=== PATIENT | male | born 1955 | race Caucasian/White ===

== ENCOUNTER 2017-01-13 10:23 | Emergency (ER) | payer OTHER ==
[~2017-01-13] VITALS: Ht 182.9 cm; Wt 143.0 kg
[~2017-01-13 10:23] MED LIST: ADVAIR HFA120 INHAL1 IH; ALLOPURINOL300 MG PO; ALPRAZOLAM0.25 M2 PO; AUGMENTIN500 MG PO; AZITHROMYCIN250 MG1 PO; Augmentin PO; BENZONATATE100 MG PO; CARDIZEM CD,CA240 MG PO; CARDIZEM CD120 MG PO; CARDIZEM LA120 MG PO; CARDIZEM120 MG PO; CARTIA XT240 MG PO; CATAPRES0.1 MG PO; CATAPRES0.3 MG PO; CITRACAL-VIT D1 EACH PO; CLONAZEPAM0.5 MG PO; CLONIDINE HCL0.1 MG PO; CLONIDINE HCL0.3 MG PO; COLBENEMID1 TABLET PO; COLCRYS0.6 MG PO; COUMADIN,JANTOVE1 MG; COUMADIN,JANTOVE5 MG; COUMADIN2 MG PO; COUMADIN3 MG PO; COUMADIN4 MG PO; COUMADIN5 MG PO; CRESTOR5 MG PO; CYMBALTA30 MG PO; Cardizem CD,Cartia X PO; Catapres PO; Cipro PO; Colchicine,Colcrys PO; Cymbalta PO; DELTASONE20 M1 PO; DIGITEK250 MC2 PO; DIGOXIN250 MCG PO; DILAUDID2 MG PO; DILAUDID4 MG PO; DILAUDID8 MG PO; DILT-XR120 MG; DILTIAZEM 24HR240 MG PO; DOCUSATE SODIU100 MG PO; DUONEB 2.5-0.5 M3 ML AEROSOL; DUONEB 2.5-0.5 M3 ML IH; DuoNeb IH; ERGOCALCIF50000 UNIT PO; EXTRA STRENGTH500 M1 PO; FAMOTIDINE40 MG PO; FINASTERIDE5 MG PO; FLEXERIL10 MG PO; FLOMAX0.4 MG PO; FLORA-Q CAPSUL1 EACH PO; FOLIC ACID1 MG PO; FUROSEMIDE20 MG PO; Folvite PO; INR ON; Imodium PO; KLONOPIN1 MG PO; KLONOPIN2 MG PO; KLOR-CON 1010 ME1 PO; KlonoPIN PO; LANOXIN250 MCG PO; LASIX20 MG PO; LEVAQUIN500 MG PO; LEVAQUIN750 MG PO; LIPITOR40 MG PO; Lanoxin,Digitek PO; Lovenox SC; MECLIZINE HCL25 MG PO; MICARDIS20 MG PO; MORPHINE SULFAT15 M1 PO; MORPHINE SULFAT30 M2 PO; MUCINEX1200 MG PO; MYCOSTATIN 100,60 ML PO; NEURONTIN300 MG PO; NEURONTIN600 MG PO; NEURONTIN800 MG PO; OXYCONTIN20 MG PO; PEPCID40 MG PO; PERCOCET 5/31 TABLET; POLYETHYLENE GL17 GM PO; PREDNISONE10 M2 PO; PREDNISONE10 MG PO; PREDNISONE20 MG PO; PREDNISONE5 MG PO; PROBENECID-COL1 EACH PO; PROMETHAZINE HC25 M1 PO; PROSCAR5 MG PO; PROTONIX40 MG PO; PROVENTIL HFA6.7 GM IH; PROVENTIL,2.5 MG/0.5 AEROSOL; PROVENTIL,2.5 MG/0.5 IH; Pepcid PO; Proscar PO; QUETIAPINE FUM100 MG PO; QUETIAPINE FUMA50 MG PO; ROXICODONE15 MG PO; SEROQUEL50 MG PO; SINGULAIR10 MG PO; SPIRIVA1 INHALATI; SPIRIVA1 INHALATI IH; SPIRONOLACTONE25 MG PO; SYMBICORT60 INHALAT IH; Singulair PO; THEO-24200 MG PO; THEO-DUR,THEOC100 MG PO; THEO-DUR,THEOC200 MG PO; THEOPHYLLINE400 MG PO; TYLENOL COLD &1 EACH PO; TYLENOL REGULA325 MG PO; Theo-Dur,Theocron PO; VITAMIN D-32000 UNIT PO; VITAMIN D2000 INTUN PO; VITAMIN D33000 UNIT PO; Vitamin D PO; WARFARIN SODIUM4 MG PO; WARFARIN SODIUM5 MG PO; Xifaxan PO; ZOFRAN4 MG PO; ZYLOPRIM150 MG PO; Zyloprim PO; [UNRECOGNIZED DRUG - OTHER]; predniSONE PO; symbicort
[2017-01-13] MEDS ORDERED: GABAPENTIN800 MG PO (10:58)
[2017-01-13] MEDS ORDERED: KLONOPIN0.5 M1 PO (11:00)
[2017-01-13 12:16] LABS: MCH 31.6 PG (29.0-34.0); MCHC 32.1 G/DL (30.0-36.0); MCV 98.5 FL (86-99); MEAN PLAT.VOLUME 9.2 uM^3 (9.0-12.4); PLATELET COUNT 230 K/uL (156-360); RBC DIS.WIDTH-CV 15.3 % (11.8-14.6); RBC DIS.WIDTH-SD 55.5 % (39-53); RED BLOOD COUNT 3.96 M/uL (4.00-5.50); WHITE BLOOD COUNT 8.4 K/uL (4.1-10.2)
[2017-01-13 12:28] LABS: CHLORIDE 103 mEq/L (99-109); SODIUM 141 mEq/L (136-147)
[2017-01-13 12:30] LABS: GLUCOSE 117 mg/dL (70-99)
[2017-01-13 12:32] LABS: ANION GAP 14 MEQ/L (2-14)
[2017-01-13 12:34] LABS: GFR ESTIMATE (CALCULATED) > 59 mL/min/
[2017-01-13 12:35] LABS: UREA NITROGEN (BUN) 19 mg/dL (9-23)
[2017-01-13 15:05] VITALS: BP 138/72
== END 2017-01-13 15:08 | disposition home or self-care (01) ==
LOC: EME 10:23
PROVIDERS: Physician Assistant Medical
DX: S30.1XXA Contusion of abdominal wall, initial encounter (principal); S39.012A Strain of muscle, fascia and tendon of lower back, initial encounter; S80.01XA Contusion of right knee, initial encounter; S80.02XA Contusion of left knee, initial encounter; W01.0XXA Fall on same level from slipping, tripping and stumbling without subsequent striking against object, initial encounter; Y93.A1 Activity, exercise machines primarily for cardiorespiratory conditioning; G89.29 Other chronic pain; J44.9 Chronic obstructive pulmonary disease, unspecified; M79.7 Fibromyalgia; I10 Essential (primary) hypertension; K21.9 Gastro-esophageal reflux disease without esophagitis; Z87.442 Personal history of urinary calculi; Z79.01 Long term (current) use of anticoagulants; Z86.73 Personal history of transient ischemic attack (TIA), and cerebral infarction without residual deficits; M06.9 Rheumatoid arthritis, unspecified; L40.50 Arthropathic psoriasis, unspecified; Z86.718 Personal history of other venous thrombosis and embolism; Z85.828 Personal history of other malignant neoplasm of skin
CPT/HCPCS: 70450; 73564; 74177; 80048; 85027; 99281; 99285

== ENCOUNTER → 2017-10-06 | Outpatient (CLI) | payer OTHER ==
[~2017-10-06] MED LIST changes: +GABAPENTIN800 MG PO; +KLONOPIN0.5 M1 PO
== END | disposition home or self-care (01) ==
LOC: AMB 08:54
PROC: 0HBFXZZ Excision of Right Hand Skin, External Approach (ICD-10-PCS; principal; 2017-10-06)
DX: C44.622 Squamous cell carcinoma of skin of right upper limb, including shoulder (principal); L57.0 Actinic keratosis
CPT/HCPCS: 88305

== ENCOUNTER 2018-02-17 19:01 | Inpatient (IN) | payer OTHER ==
[~2018-02-17] VITALS: Ht 182.9 cm; Wt 150.4 kg
[~2018-02-17 19:01] MED LIST changes: +EMBEDA ER 20-01 EACH PO; +OXYCONTIN15 MG PO; +SYMBICORT60 INHALA1 IH
[2018-02-17 19:44] LABS: CHLORIDE 108 mEq/L (99-109); POTASSIUM 5.8 mEq/L (3.7-5.4); SODIUM 140 mEq/L (136-147)
[2018-02-17 19:46] LABS: GLUCOSE 102 mg/dL (70-99)
[2018-02-17 19:50] LABS: GFR ESTIMATE (CALCULATED) 36 mL/min/ (58.99-99999); UREA NITROGEN (BUN) 44 mg/dL (9-23)
[2018-02-17 19:54] LABS: TROP-I INTERPRETATION NEGATIVE; TROPONIN-I < 0.01 ng/mL (0.0-0.30)
[2018-02-17 20:53] LABS: HEMATOCRIT 23.6 % (38.0-50.0); HEMOGLOBIN 7.3 G/DL (12.5-16.6); MCH 22.9 PG (29.0-34.0); MCHC 30.9 G/DL (30.0-36.0); NRBC (%) 2.1 /100 WBC (0-0); RBC DIS.WIDTH-CV 37.9 % (11.8-14.6); RED BLOOD COUNT 3.19 M/uL (4.00-5.50); WHITE BLOOD COUNT 3.9 K/uL (4.1-10.2)
[2018-02-17 21:37] LABS: ACANTHOCYTES 2+; ANISOCYTOSIS 3+; BASOPH.STIPPLING 3+; HYPOCHROMASIA 2+; MACROCYTES 1+; MICROCYTOSIS 2+; PLAT.SUFFICIENCY VERY DECREASED; POIKILOCYTOSIS 3+; POLYCHROMASIA 3+; SCHISTOCYTES 3+; TARGET CELLS 1+; TEAR DROP CELLS 2+
[2018-02-17 21:39] LABS: MAGNESIUM 2.1 mg/dL (1.3-2.7)
[2018-02-17] MEDS ORDERED: SEROQUEL100 MG PO (21:57)
[2018-02-17] MEDS ORDERED: OMEPRAZOLE40 M1 PO (21:59)
[2018-02-17] MEDS ORDERED: CYMBALTA60 MG PO (21:59)
[2018-02-17] MEDS ORDERED: KLOR-CON M2020 MEQ PO (21:59)
[2018-02-17] MEDS ORDERED: PROMETHAZINE HC25 M1 PO (22:00)
[2018-02-17] MEDS ORDERED: ERGOCALCIF50000 UNIT PO (22:00)
[2018-02-17 22:08] LABS: INTER. NORMALIZED RATIO 2.1
[2018-02-17 22:20] LABS: PLATELET COUNT 25 K/uL (156-360)
[2018-02-17 22:27] LABS: APPEARANCE CLEAR ((CLEAR)); BILIRUBIN NEGATIVE; BLOOD NEGATIVE; COLOR YELLOW ((YELLOW)); GLUCOSE (STRIP) NEGATIVE; KETONES NEGATIVE; LEUKOCYTES NEGATIVE; NITRITE NEGATIVE; PROTEIN (STRIP) NEGATIVE; SPECIFIC GRAVITY 1.013 (1.000-1.030); UROBILINOGEN 0.2 MG/DL (0.2-1.0)
[2018-02-17 23:17] LABS: ABS NEUTROPHIL COUNT 0.6; EOSINOPHIL ABS CT 0.2
[2018-02-17 23:21] LABS: HEMATOCRIT 22.9 % (38.0-50.0); MCH 22.8 PG (29.0-34.0); MCHC 30.6 G/DL (30.0-36.0); MCV 74.6 FL (86-99); NRBC (%) 2.7 /100 WBC (0-0); RBC DIS.WIDTH-CV 38.1 % (11.8-14.6); RED BLOOD COUNT 3.07 M/uL (4.00-5.50); WHITE BLOOD COUNT 3.4 K/uL (4.1-10.2)
[2018-02-18] VITALS (17 sets, daily range): BP systolic 107–189; BP diastolic 49–84
[2018-02-18 00:44] LABS: ABS NEUTROPHIL COUNT 0.4; ACANTHOCYTES 2+; ANISOCYTOSIS 3+; ATYPICAL LYMPHOCYTE 13.7 %; BAND NEUTROPHILS 4.9 % (0-8.0); BASOPH.STIPPLING 1+; BASOPHILS 4.9 %; EOSINOPHIL ABS CT 0.2; EOSINOPHILS 6.9 % (0-5.0); GIANT PLATELETS 1+; HELMET CELLS 1+; HYPOCHROMASIA 2+; IMM.PLATELET FRACTION 19.3 (1-7); LYMPHOCYTES 57.8 % (15.0-45.0); MACROCYTES 1+; METAMYELOCYTES 2.9 %; MICROCYTOSIS 2+; NUCLEATED RBC'S 5.9; PLAT.SUFFICIENCY DECREASED; PLATELET COUNT 54 K/uL (156-360); POIKILOCYTOSIS 3+; POLYCHROMASIA 3+; SCHISTOCYTES 2+; SEG.NEUTROPHILS 7.9 % (46.0-76.0); SPHEROCYTES 1+; TARGET CELLS 3+; TEAR DROP CELLS 1+
[2018-02-18 01:17] LABS: BASE EXCESS 0.7 mEq/L (-3 to +3); BICARBONATE 26.5 mEq/L (22-26); CARBOXY HGB 2.1 % (0-5); METHEMOGLOBIN 0.6 % (0-1.5); PCO2 48 mm Hg (35-45); PO2 95 mm Hg (80-100); SITE LR; pH 7.35 (7.35-7.45)
[2018-02-18 01:18] LABS: COMMENTS - BLOOD GASES C+A+; DEVICE NC; O2 FLOW 2 L/MIN; TOTAL RESP RATE 19 resp/min
[2018-02-18 06:31] LABS: APPEARANCE CLEAR ((CLEAR)); BILIRUBIN NEGATIVE; BLOOD NEGATIVE; COLOR STRAW ((YELLOW)); GLUCOSE (STRIP) NEGATIVE; KETONES NEGATIVE; LEUKOCYTES NEGATIVE; NITRITE NEGATIVE; PROTEIN (STRIP) NEGATIVE; SPECIFIC GRAVITY 1.008 (1.000-1.030); UCUL ADDED? NO; UROBILINOGEN 0.2 MG/DL (0.2-1.0)
[2018-02-18 09:30] LABS: IRON 157 MCG/DL (35-150); TRANSFERRIN SATUR. 67 % (20-55)
[2018-02-18 09:43] LABS: TROP-I INTERPRETATION NEGATIVE; TROPONIN-I < 0.01 ng/mL (0.0-0.30)
[2018-02-18 09:47] LABS: FERRITIN 475 NG/ML (22-322)
[2018-02-18 09:57] LABS: FOLIC ACID (FOLATE) 14.2 NG/ML (5.0-22.0)
[2018-02-18 14:21] LABS: TROP-I INTERPRETATION NEGATIVE; TROPONIN-I < 0.01 ng/mL (0.0-0.30)
[2018-02-18 21:19] LABS: STOOL OCCULT BLD 1ST SPECIMEN NEGATIVE
[2018-02-19 00:13] VITALS: BP 133/60
[2018-02-19 03:58] VITALS: BP 132/63
[2018-02-19 06:52] LABS: HEMATOCRIT 31.5 % (38.0-50.0); IMM.PLATELET FRACTION 17.2 (1-7); MCH 23.9 PG (29.0-34.0); MCHC 31.1 G/DL (30.0-36.0); MCV 76.8 FL (86-99); NRBC (%) 1.7 /100 WBC (0-0); PLATELET COUNT 60 K/uL (156-360); RBC DIS.WIDTH-CV 34.6 % (11.8-14.6); WHITE BLOOD COUNT 3.6 K/uL (4.1-10.2)
[2018-02-19 06:55] LABS: CHLORIDE 103 MEQ/L (99-109); GLUCOSE 114 mg/dL (70-99); SODIUM 142 MEQ/L (136-147); UREA NITROGEN (BUN) 34 mg/dL (9-23)
[2018-02-19 06:56] LABS: HEMOGLOBIN 9.8 G/DL (12.5-16.6)
[2018-02-19 07:03] LABS: CREATININE 1.4 MG/DL (0.6-1.3); GFR ESTIMATE (CALCULATED) 54 mL/min/ (58.99-99999); POTASSIUM 4.6 MEQ/L (3.7-5.4)
[2018-02-19 07:34] VITALS: BP 138/77
[2018-02-19 12:30] VITALS: BP 139/81
[2018-02-19 15:43] VITALS: BP 128/60
[2018-02-19 19:35] VITALS: BP 124/56
[2018-02-20 00:03] VITALS: BP 136/63
[2018-02-20 03:37] VITALS: BP 126/58
[2018-02-20 07:14] VITALS: BP 115/52
[2018-02-20 11:20] LABS: HEMATOCRIT 28.8 % (38.0-50.0); HEMOGLOBIN 9.1 G/DL (12.5-16.6); MCH 23.9 PG (29.0-34.0); MCHC 31.6 G/DL (30.0-36.0); MCV 75.6 FL (86-99); NRBC (%) 2.6 /100 WBC (0-0); RBC DIS.WIDTH-CV 34.5 % (11.8-14.6); RED BLOOD COUNT 3.81 M/uL (4.00-5.50); WHITE BLOOD COUNT 2.7 K/uL (4.1-10.2)
[2018-02-20 11:28] LABS: PLATELET COUNT 520 K/uL (156-360)
[2018-02-20 11:47] LABS: CHLORIDE 99 MEQ/L (99-109); CREATININE 1.2 MG/DL (0.6-1.3); GFR ESTIMATE (CALCULATED) > 59 mL/min/ (58.99-99999); GLUCOSE 139 mg/dL (70-99); SODIUM 138 MEQ/L (136-147); UREA NITROGEN (BUN) 29 mg/dL (9-23)
[2018-02-20 16:47] VITALS: BP 136/60
[2018-02-20 23:31] VITALS: BP 156/62
[2018-02-21 06:24] LABS: HEMATOCRIT 27.9 % (38.0-50.0); HEMOGLOBIN 8.8 G/DL (12.5-16.6); MCHC 31.5 G/DL (30.0-36.0); NRBC (%) 1.5 /100 WBC (0-0); RBC DIS.WIDTH-CV 34.5 % (11.8-14.6); RED BLOOD COUNT 3.67 M/uL (4.00-5.50); WHITE BLOOD COUNT 2.7 K/uL (4.1-10.2)
[2018-02-21 06:32] LABS: CHLORIDE 100 MEQ/L (99-109); CREATININE 1.2 MG/DL (0.6-1.3); GFR ESTIMATE (CALCULATED) > 59 mL/min/ (58.99-99999); GLUCOSE 121 mg/dL (70-99); MAGNESIUM 1.7 mg/dl (1.3-2.7); POTASSIUM 4.4 MEQ/L (3.7-5.4); SODIUM 141 MEQ/L (136-147); UREA NITROGEN (BUN) 28 mg/dL (9-23)
[2018-02-21 07:46] LABS: IMM.PLATELET FRACTION 21.1 (1-7); PLAT.SUFFICIENCY VERY DECREASED
[2018-02-21 07:54] LABS: PLATELET COUNT 23 K/uL (156-360)
[2018-02-21 07:56] VITALS: BP 134/63
[2018-02-21 16:00] VITALS: BP 108/66
[2018-02-21 23:36] VITALS: BP 132/67
[2018-02-22] VITALS (10 sets, daily range): BP systolic 113–136; BP diastolic 54–65
[2018-02-22 06:25] LABS: CHLORIDE 100 MEQ/L (99-109); CREATININE 1.2 MG/DL (0.6-1.3); GFR ESTIMATE (CALCULATED) > 59 mL/min/ (58.99-99999); GLUCOSE 94 mg/dL (70-99); POTASSIUM 4.5 MEQ/L (3.7-5.4); SODIUM 142 MEQ/L (136-147); UREA NITROGEN (BUN) 24 mg/dL (9-23)
[2018-02-22 06:37] LABS: HEMATOCRIT 28.5 % (38.0-50.0); MCHC 31.6 G/DL (30.0-36.0); NRBC (%) 1.3 /100 WBC (0-0); RBC DIS.WIDTH-CV 34.6 % (11.8-14.6); RED BLOOD COUNT 3.75 M/uL (4.00-5.50); WHITE BLOOD COUNT 3.1 K/uL (4.1-10.2)
[2018-02-22 08:18] LABS: ABS NEUTROPHIL COUNT 0.6; ANISOCYTOSIS 3+; BAND NEUTROPHILS 15.2 % (0-8.0); BASOPHILS 0.9 %; BURR CELLS 2+; EOSINOPHIL ABS CT 0.3; EOSINOPHILS 8.9 % (0-5.0); HEMATOLOGY COMMENT 1 SLIDE REFFERED TO PATHOLOGY; HYPOCHROMASIA 2+; IMM.PLATELET FRACTION 22.6 (1-7); LYMPHOCYTES 47.3 % (15.0-45.0); MACROCYTES 1+; METAMYELOCYTES 2.7 %; MICROCYTOSIS 2+; MONOCYTES 3.6 % (0-9.0); MYELOCYTES 1.8 %; NUCLEATED RBC'S 1.8; PLAT.SUFFICIENCY VERY DECREASED; POIKILOCYTOSIS 2+; POLYCHROMASIA 1+; SCHISTOCYTES 2+; SEG.NEUTROPHILS 3.6 % (46.0-76.0); TARGET CELLS 1+
[2018-02-22 08:21] LABS: PLATELET COUNT 23 K/uL (156-360)
[2018-02-23 06:24] LABS: INTER. NORMALIZED RATIO 1.2
[2018-02-23 06:26] LABS: PTT 31.8 SEC (25-37)
[2018-02-23 08:08] VITALS: BP 121/69
[2018-02-23 13:07] LABS: HEMATOCRIT 31.6 % (38.0-50.0); HEMOGLOBIN 9.7 G/DL (12.5-16.6); MCH 23.5 PG (29.0-34.0); MCHC 30.7 G/DL (30.0-36.0); MCV 76.5 FL (86-99); NRBC (%) 1.4 /100 WBC (0-0); RBC DIS.WIDTH-CV 34.4 % (11.8-14.6); RED BLOOD COUNT 4.13 M/uL (4.00-5.50); WHITE BLOOD COUNT 2.8 K/uL (4.1-10.2)
[2018-02-23 13:29] LABS: ABS NEUTROPHIL COUNT 0.8; ANISOCYTOSIS 2+; BAND NEUTROPHILS 16.8 % (0-8.0); BASOPH.STIPPLING 1+; BASOPHILS 2.7 %; BURR CELLS 2+; EOSINOPHIL ABS CT 0.4; EOSINOPHILS 13.3 % (0-5.0); HEMATOLOGY COMMENT 1 OTHERS=IMMATURE MONONUCLEAR CELLS; HYPOCHROMASIA 2+; IMM.PLATELET FRACTION 13.4 (1-7); LYMPHOCYTES 38.1 % (15.0-45.0); METAMYELOCYTES 3.5 %; MICROCYTOSIS 2+; MONOCYTES 1.8 % (0-9.0); MYELOCYTES 3.5 %; OTHER 9.7; PLAT.SUFFICIENCY DECREASED; POIKILOCYTOSIS 2+; POLYCHROMASIA 1+; SCHISTOCYTES 2+; SEG.NEUTROPHILS 10.6 % (46.0-76.0); TARGET CELLS 1+; TEAR DROP CELLS 1+
[2018-02-23 13:32] LABS: PLATELET COUNT 81 K/uL (156-360)
[2018-02-23 15:28] VITALS: BP 141/65
[2018-02-24] VITALS (9 sets, daily range): BP systolic 103–131; BP diastolic 52–68
[2018-02-24 11:09] LABS: CHLORIDE 98 MEQ/L (99-109); CREATININE 1.3 MG/DL (0.6-1.3); GFR ESTIMATE (CALCULATED) > 59 mL/min/ (58.99-99999); GLUCOSE 159 mg/dL (70-99); POTASSIUM 3.9 MEQ/L (3.7-5.4); SODIUM 139 MEQ/L (136-147); UREA NITROGEN (BUN) 26 mg/dL (9-23)
[2018-02-24 11:13] LABS: HEMATOCRIT 29.9 % (38.0-50.0); HEMOGLOBIN 9.2 G/DL (12.5-16.6); MCH 23.3 PG (29.0-34.0); MCHC 30.8 G/DL (30.0-36.0); MCV 75.7 FL (86-99); RBC DIS.WIDTH-CV 34.3 % (11.8-14.6); RED BLOOD COUNT 3.95 M/uL (4.00-5.50); WHITE BLOOD COUNT 3.9 K/uL (4.1-10.2)
[2018-02-24 12:18] LABS: ABS NEUTROPHIL COUNT 0.9; ATYPICAL LYMPHOCYTE 1.8 %; BAND NEUTROPHILS 7.3 % (0-8.0); BASOPHILS 2.7 %; EOSINOPHIL ABS CT 0.3; EOSINOPHILS 8.2 % (0-5.0); LYMPHOCYTES 48.2 % (15.0-45.0); MYELOCYTES 6.4 %; NUCLEATED RBC'S 0.9; SEG.NEUTROPHILS 15.4 % (46.0-76.0)
[2018-02-24 12:22] LABS: PLATELET COUNT 49 K/uL (156-360)
[2018-02-25 00:18] VITALS: BP 126/67
[2018-02-25 01:18] VITALS: BP 142/63
[2018-02-25 01:56] VITALS: BP 145/70
[2018-02-25 03:09] LABS: HEMATOCRIT 27.7 % (38.0-50.0); HEMOGLOBIN 8.9 G/DL (12.5-16.6); MCHC 32.1 G/DL (30.0-36.0); MCV 74.7 FL (86-99); NRBC (%) 0.7 /100 WBC (0-0); RBC DIS.WIDTH-CV 34.5 % (11.8-14.6); RED BLOOD COUNT 3.71 M/uL (4.00-5.50); WHITE BLOOD COUNT 4.6 K/uL (4.1-10.2)
[2018-02-25 04:31] LABS: ABS NEUTROPHIL COUNT 0.9; ANISOCYTOSIS 2+; BAND NEUTROPHILS 1.9 % (0-8.0); BASOPH.STIPPLING 1+; BASOPHILS 1.9 %; BURR CELLS 3+; EOSINOPHIL ABS CT 0.5; EOSINOPHILS 11.2 % (0-5.0); GIANT PLATELETS 3+; HYPOCHROMASIA 1+; LYMPHOCYTES 45.8 % (15.0-45.0); MACROCYTES 1+; METAMYELOCYTES 2.8 %; MICROCYTOSIS 2+; MONOCYTES 4.7 % (0-9.0); MYELOCYTES 5.6 %; NUCLEATED RBC'S 2.8; OTHER 9.3; PLAT.SUFFICIENCY VERY DECREASED; PLATELET COUNT 63 K/uL (156-360); POIKILOCYTOSIS 3+; POLYCHROMASIA 3+; SCHISTOCYTES 1+; SEG.NEUTROPHILS 16.8 % (46.0-76.0); TARGET CELLS 1+; TEAR DROP CELLS 2+
[2018-02-25 08:19] VITALS: BP 119/73
[2018-02-25 11:56] LABS: INTER. NORMALIZED RATIO 1.2
[2018-02-25] MEDS ORDERED: CYANOCOBALAM1000 MCG PO (13:38)
[2018-02-25 16:51] LABS: CLINICAL INFORMATION NOT PROVIDED; NUMBER OF MARKERS 22; SPECIMEN TYPE BONE MARROW; SPECIMEN VIABILITY 93
== END 2018-02-25 16:36 | disposition home health service (06) | DRG 809 ==
LOC: EME 19:01 → EXP 19:01 → EDOF 02-18 01:03 → 5SOUTH 02-18 01:03 → ENRESERV 02-18 01:13 → 5SOUTH 02-18 03:12 → ENPENDDIS 02-25 14:19 → 5SOUTH 02-25 16:36
PROVIDERS: Hospitalist; Internal Medicine; Internal Medicine Hematology & Oncology; Physician Assistant; Radiology Diagnostic Radiology
PROC: 30233N1 Transfusion of Nonautologous Red Blood Cells into Peripheral Vein, Percutaneous Approach (ICD-10-PCS; principal; 2018-02-18)
PROC: 30233R1 Transfusion of Nonautologous Platelets into Peripheral Vein, Percutaneous Approach (ICD-10-PCS; 2018-02-22)
PROC: 07DS3ZX Extraction of Vertebral Bone Marrow, Percutaneous Approach, Diagnostic (ICD-10-PCS; 2018-02-23)
DX: D61.818 Other pancytopenia (principal); I48.0 Paroxysmal atrial fibrillation; I48.2 Chronic atrial fibrillation; I12.9 Hypertensive chronic kidney disease with stage 1 through stage 4 chronic kidney disease, or unspecified chronic kidney disease; N18.2 Chronic kidney disease, stage 2 (mild); E66.01 Morbid (severe) obesity due to excess calories; Z68.41 Body mass index [BMI] 40.0-44.9, adult; I69.354 Hemiplegia and hemiparesis following cerebral infarction affecting left non-dominant side; I69.398 Other sequelae of cerebral infarction; R42 Dizziness and giddiness; F05 Delirium due to known physiological condition; I27.20 Pulmonary hypertension, unspecified; J44.9 Chronic obstructive pulmonary disease, unspecified; G47.33 Obstructive sleep apnea (adult) (pediatric); Z99.81 Dependence on supplemental oxygen; E78.00 Pure hypercholesterolemia, unspecified; L40.50 Arthropathic psoriasis, unspecified; K76.0 Fatty (change of) liver, not elsewhere classified; F03.90 Unspecified dementia, unspecified severity, without behavioral disturbance, psychotic disturbance, mood disturbance, and anxiety; G93.89 Other specified disorders of brain; M10.9 Gout, unspecified; M06.9 Rheumatoid arthritis, unspecified; M79.7 Fibromyalgia; G43.909 Migraine, unspecified, not intractable, without status migrainosus; Q60.0 Renal agenesis, unilateral; G89.29 Other chronic pain; M54.9 Dorsalgia, unspecified; E53.8 Deficiency of other specified B group vitamins; K21.9 Gastro-esophageal reflux disease without esophagitis; F41.9 Anxiety disorder, unspecified; F32.9 Major depressive disorder, single episode, unspecified; Z86.718 Personal history of other venous thrombosis and embolism; Z79.01 Long term (current) use of anticoagulants; Z87.442 Personal history of urinary calculi; Z87.19 Personal history of other diseases of the digestive system; Z90.49 Acquired absence of other specified parts of digestive tract
CPT/HCPCS: 36600; 70450; 70551; 71046; 77012; 80048; 81003; 82272; 82607; 82728; 82746; 82803; 82948; 83090 90; 83540; 83735; 83921 90; 84466; 84484; 85007; 85025; 85025 91; 85027; 85049; 85610; 85730; 86850; 86900; 86901; 86920; 93005; 94640; 94640 76; 94760; 94799; 95819; 99202; 99281; 99285; J1200; J1940; J2405; J3010; J3420; J7030; P9016; P9035

== ENCOUNTER 2018-03-15 11:14 | Inpatient (IN) | payer OTHER ==
[2018-03-15] VITALS (8 sets, daily range): BP systolic 95–151; BP diastolic 45–66
[~2018-03-15] VITALS: Ht 182.9 cm; Wt 149.8 kg
[~2018-03-15 11:14] MED LIST changes: +CYANOCOBALAM1000 MCG PO; +CYMBALTA60 MG PO; +KLOR-CON M2020 MEQ PO; +OMEPRAZOLE40 M1 PO; +SEROQUEL100 MG PO
[2018-03-15 12:33] LABS: BASE EXCESS 3.3 mEq/L (-3 to +3); BICARBONATE 27.8 mEq/L (22-26); CARBOXY HGB 2.2 % (0-5); COMMENTS - BLOOD GASES A+C+; DEVICE NC; METHEMOGLOBIN 1.1 % (0-1.5); O2 FLOW 2 L/MIN; PCO2 41 mm Hg (35-45); PO2 71 mm Hg (80-100); SITE RR; TOTAL RESP RATE 25 resp/min; pH 7.44 (7.35-7.45)
[2018-03-15 12:33] LABS: INTER. NORMALIZED RATIO 2.3
[2018-03-15 12:35] LABS: PTT 40.4 SEC (25-37)
[2018-03-15 12:40] LABS: CHLORIDE 105 mEq/L (99-109); SODIUM 137 mEq/L (136-147)
[2018-03-15 12:42] LABS: GLUCOSE 101 mg/dL (70-99)
[2018-03-15 12:45] LABS: CREATININE 1.8 mg/dL (0.6-1.3); GFR ESTIMATE (CALCULATED) 41 mL/min/ (58.99-99999); HEMATOCRIT 21.9 % (38.0-50.0); HEMOGLOBIN 7.1 G/DL (12.5-16.6); MCH 23.6 PG (29.0-34.0); MCHC 32.4 G/DL (30.0-36.0); MCV 72.8 FL (86-99); NRBC (%) 0.9 /100 WBC (0-0); RBC DIS.WIDTH-CV 34.9 % (11.8-14.6); RED BLOOD COUNT 3.01 M/uL (4.00-5.50); WHITE BLOOD COUNT 5.8 K/uL (4.1-10.2)
[2018-03-15 12:46] LABS: UREA NITROGEN (BUN) 42 mg/dL (9-23)
[2018-03-15 12:48] LABS: CREATINE KINASE 114 IU/L (1-294); POTASSIUM 6.3 mEq/L (3.7-5.4); TOTAL CK 114 IU/L (1-294)
[2018-03-15 12:50] LABS: TROP-I INTERPRETATION NEGATIVE; TROPONIN-I < 0.01 ng/mL (0.0-0.30)
[2018-03-15 12:57] LABS: CK-MB 1.3 ng/mL (0.0-4.9); CKMB RELATIVE INDEX 1.1 (0.0-3.9)
[2018-03-15 13:27] LABS: IMM.PLATELET FRACTION 18.8 (1-7); PLATELET COUNT 37 K/uL (156-360)
[2018-03-15 13:28] LABS: ABS NEUTROPHIL COUNT 2.8; ACANTHOCYTES 2+; ANISOCYTOSIS 2+; BAND NEUTROPHILS 22.4 % (0-8.0); BURR CELLS 2+; EOSINOPHIL ABS CT 0.5; EOSINOPHILS 8.6 % (0-5.0); HYPOCHROMASIA 1+; LYMPHOCYTES 18.1 % (15.0-45.0); METAMYELOCYTES 5.2 %; MICROCYTOSIS 2+; MYELOCYTES 11.2 %; NUCLEATED RBC'S 0.9; OTHER 8.6; OVALOCYTES 2+; PLAT.SUFFICIENCY DECREASED; POIKILOCYTOSIS 3+; POLYCHROMASIA 3+; SEG.NEUTROPHILS 25.9 % (46.0-76.0)
[2018-03-15] MEDS ORDERED: LISINOPRIL10 MG PO (13:40)
[2018-03-15] MEDS ORDERED: DILTIAZEM 24HR240 MG PO (13:44)
[2018-03-15] MEDS ORDERED: WARFARIN SODIUM3 MG PO (13:47)
[2018-03-15] MEDS ORDERED: CYANOCOBALAM1000 MCG PO (13:48)
[2018-03-15] MEDS ORDERED: ACETAMINOPHEN325 M1 PO (13:48)
[2018-03-15 18:50] LABS: APPEARANCE CLEAR ((CLEAR)); BILIRUBIN NEGATIVE; BLOOD NEGATIVE; COLOR STRAW ((YELLOW)); GLUCOSE (STRIP) NEGATIVE; KETONES NEGATIVE; LEUKOCYTES NEGATIVE; NITRITE NEGATIVE; PROTEIN (STRIP) 30; SPECIFIC GRAVITY 1.004 (1.000-1.030); UCUL ADDED? NO; UROBILINOGEN 0.2 MG/DL (0.2-1.0)
[2018-03-15 20:20] LABS: STOOL OCCULT BLD 1ST SPECIMEN NEGATIVE
[2018-03-15 20:40] LABS: CHLORIDE 105 MEQ/L (99-109); CREATININE 1.6 MG/DL (0.6-1.3); GFR ESTIMATE (CALCULATED) 46 mL/min/ (58.99-99999); GLUCOSE 107 mg/dL (70-99); POTASSIUM 5.4 MEQ/L (3.7-5.4); SODIUM 137 MEQ/L (136-147); UREA NITROGEN (BUN) 35 mg/dL (9-23)
[2018-03-16 03:37] VITALS: BP 125/79; BP 132/93
[2018-03-16 06:05] LABS: HEMATOCRIT 27.1 % (38.0-50.0); HEMOGLOBIN 8.4 G/DL (12.5-16.6); NRBC (%) 0.5 /100 WBC (0-0); WHITE BLOOD COUNT 6.1 K/uL (4.1-10.2)
[2018-03-16 06:06] LABS: RED BLOOD COUNT 3.66 M/uL (4.00-5.50)
[2018-03-16 06:15] LABS: CHLORIDE 105 MEQ/L (99-109); CREATININE 1.3 MG/DL (0.6-1.3); GFR ESTIMATE (CALCULATED) > 59 mL/min/ (58.99-99999); GLUCOSE 107 mg/dL (70-99); POTASSIUM 5.6 MEQ/L (3.7-5.4); SODIUM 139 MEQ/L (136-147); UREA NITROGEN (BUN) 30 mg/dL (9-23)
[2018-03-16 06:27] LABS: PLAT.SUFFICIENCY DECREASED
[2018-03-16 07:30] LABS: PLATELET COUNT 36 K/uL (156-360)
[2018-03-16 08:04] VITALS: BP 140/67
[2018-03-16 11:16] VITALS: BP 141/70
[2018-03-16 15:15] VITALS: BP 130/69
[2018-03-16 20:04] VITALS: BP 123/64
[2018-03-16 23:06] VITALS: BP 129/66
[2018-03-17 04:00] VITALS: BP 148/77
[2018-03-17 06:39] LABS: CHLORIDE 106 MEQ/L (99-109); CREATININE 1.1 MG/DL (0.6-1.3); GFR ESTIMATE (CALCULATED) > 59 mL/min/ (58.99-99999); GLUCOSE 102 mg/dL (70-99); POTASSIUM 4.7 MEQ/L (3.7-5.4); SODIUM 144 MEQ/L (136-147); UREA NITROGEN (BUN) 19 mg/dL (9-23)
[2018-03-17 06:54] LABS: HEMATOCRIT 27.1 % (38.0-50.0); HEMOGLOBIN 8.6 G/DL (12.5-16.6); MCH 23.4 PG (29.0-34.0); MCHC 31.7 G/DL (30.0-36.0); MCV 73.8 FL (86-99); NRBC (%) 0.4 /100 WBC (0-0); RBC DIS.WIDTH-CV 32.5 % (11.8-14.6); RED BLOOD COUNT 3.67 M/uL (4.00-5.50); WHITE BLOOD COUNT 5.7 K/uL (4.1-10.2)
[2018-03-17 07:06] LABS: ABS NEUTROPHIL COUNT 2.1; ACANTHOCYTES 2+; ANISOCYTOSIS 2+; ATYPICAL LYMPHOCYTE 0.9 %; BAND NEUTROPHILS 12.9 % (0-8.0); BURR CELLS 1+; EOSINOPHIL ABS CT 0.1; EOSINOPHILS 1.7 % (0-5.0); HYPOCHROMASIA 1+; LYMPHOCYTES 19.8 % (15.0-45.0); MACROCYTES 1+; METAMYELOCYTES 12.1 %; MICROCYTOSIS 1+; MYELOCYTES 16.4 %; NUCLEATED RBC'S 1.7; OTHER 12.1; PLAT.SUFFICIENCY DECREASED; POIKILOCYTOSIS 3+; POLYCHROMASIA 3+; SCHISTOCYTES 1+; SEG.NEUTROPHILS 24.1 % (46.0-76.0); SPHEROCYTES 1+
[2018-03-17 07:23] VITALS: BP 171/81
[2018-03-17 07:31] LABS: PLATELET COUNT 41 K/uL (156-360)
[2018-03-17 12:02] VITALS: BP 138/70
[2018-03-17 15:48] VITALS: BP 145/82
[2018-03-17 20:15] VITALS: BP 154/74
[2018-03-18 03:38] VITALS: BP 121/58
[2018-03-18 08:03] VITALS: BP 153/74
[2018-03-18 11:53] VITALS: BP 121/66
[2018-03-18] MEDS ORDERED: MEDROL DOSEPAK4 MG PO (11:55)
[2018-03-18] MEDS ORDERED: KEFLEX500 MG PO (11:56)
[2018-03-18 16:21] VITALS: BP 144/72
== END 2018-03-18 17:38 | disposition home health service (06) | DRG 809 ==
LOC: EME 11:14 → 5SOUTH 13:50 → EDOF 13:50 → ENRESERV 13:52 → 5SOUTH 15:00
PROVIDERS: Emergency Medicine; Hospitalist; Internal Medicine; Physician Assistant
PROC: 30233N1 Transfusion of Nonautologous Red Blood Cells into Peripheral Vein, Percutaneous Approach (ICD-10-PCS; principal; 2018-03-15)
DX: D61.818 Other pancytopenia (principal); N17.9 Acute kidney failure, unspecified; Q60.0 Renal agenesis, unilateral; D63.8 Anemia in other chronic diseases classified elsewhere; D46.Z Other myelodysplastic syndromes; F05 Delirium due to known physiological condition; E86.0 Dehydration; G47.30 Sleep apnea, unspecified; I27.20 Pulmonary hypertension, unspecified; J44.9 Chronic obstructive pulmonary disease, unspecified; E78.00 Pure hypercholesterolemia, unspecified; E87.5 Hyperkalemia; Z86.718 Personal history of other venous thrombosis and embolism; I48.91 Unspecified atrial fibrillation; E66.9 Obesity, unspecified; Z68.41 Body mass index [BMI] 40.0-44.9, adult; R41.3 Other amnesia; M79.7 Fibromyalgia; Q92.9 Trisomy and partial trisomy of autosomes, unspecified; L40.50 Arthropathic psoriasis, unspecified; Z96.653 Presence of artificial knee joint, bilateral; Z86.73 Personal history of transient ischemic attack (TIA), and cerebral infarction without residual deficits; Z79.01 Long term (current) use of anticoagulants; Z78.1 Physical restraint status; K21.9 Gastro-esophageal reflux disease without esophagitis; Z99.81 Dependence on supplemental oxygen; E53.8 Deficiency of other specified B group vitamins
CPT/HCPCS: 36600; 71045; 80048; 80048 91; 81003; 82272; 82550; 82553; 82803; 83880; 84132 91; 84484; 85025; 85027; 85610; 85730; 86850; 86900; 86901; 86920; 93005; 93971; 94799; 99202; 99281; 99285; A6214; J1630; J2060; J2405; J7030; J7050; P9016; Q0138

== ENCOUNTER 2018-03-29 13:55 | Inpatient (IN) | payer OTHER ==
[~2018-03-29] VITALS: Ht 182.9 cm; Wt 140.9 kg
[~2018-03-29 13:55] MED LIST changes: +ACETAMINOPHEN325 M1 PO; -EMBEDA ER 20-01 EACH PO; +KEFLEX500 MG PO; +LISINOPRIL10 MG PO; +MEDROL DOSEPAK4 MG PO; +WARFARIN SODIUM3 MG PO
[2018-03-29 16:14] LABS: ALBUMIN 3.5 g/dL (3.2-4.8); INTER. NORMALIZED RATIO 3.4
[2018-03-29 16:15] LABS: CHLORIDE 101 mEq/L (99-109); SODIUM 134 mEq/L (136-147)
[2018-03-29 16:16] LABS: PTT 49.1 SEC (25-37)
[2018-03-29 16:17] LABS: GLUCOSE 111 mg/dL (70-99)
[2018-03-29 16:19] LABS: TOTAL BILIRUBIN 0.6 mg/dL (0.0-1.0)
[2018-03-29 16:20] LABS: ALKALINE PHOSPHATASE 88 IU/L (3-129)
[2018-03-29 16:21] LABS: GFR ESTIMATE (CALCULATED) 20 mL/min/ (58.99-99999)
[2018-03-29 16:22] LABS: AST (GOT) 23 IU/L (2-34); UREA NITROGEN (BUN) 78 mg/dL (9-23)
[2018-03-29 16:23] LABS: ALT (GPT) 13 IU/L (3-49)
[2018-03-29 16:24] LABS: LIPASE 13 U/L (1.0-51.0)
[2018-03-29 16:32] LABS: HEMATOCRIT 24.6 % (38.0-50.0); HEMOGLOBIN 7.9 G/DL (12.5-16.6); MCH 22.8 PG (29.0-34.0); MCHC 32.1 G/DL (30.0-36.0); MCV 71.1 FL (86-99); NRBC (%) 0.6 /100 WBC (0-0); POTASSIUM 6.4 mEq/L (3.7-5.4); RBC DIS.WIDTH-CV 33.6 % (11.8-14.6); RED BLOOD COUNT 3.46 M/uL (4.00-5.50); TROP-I INTERPRETATION NEGATIVE; TROPONIN-I < 0.01 ng/mL (0.0-0.30); WHITE BLOOD COUNT 6.2 K/uL (4.1-10.2)
[2018-03-29 16:33] LABS: CREATININE 3.3 mg/dL (0.6-1.3)
[2018-03-29 17:31] LABS: ABS NEUTROPHIL COUNT 2.7; ANISOCYTOSIS 2+; BAND NEUTROPHILS 10.6 % (0-8.0); BASOPH.STIPPLING 1+; BASOPHILS 0.9 %; BURR CELLS 1+; EOSINOPHIL ABS CT 0.4; EOSINOPHILS 6.2 % (0-5.0); HEMATOLOGY COMMENT 1 SN; HYPOCHROMASIA 1+; IMM.PLATELET FRACTION 22.5 (1-7); LYMPHOCYTES 21.2 % (15.0-45.0); METAMYELOCYTES 9.7 %; MICROCYTOSIS 1+; MONOCYTES 0.9 % (0-9.0); MYELOCYTES 4.4 %; NUCLEATED RBC'S 0.9; OTHER 13.3; PLAT.SUFFICIENCY VERY DECREASED; PLATELET COUNT 33 K/uL (156-360); POIKILOCYTOSIS 3+; POLYCHROMASIA 3+; SCHISTOCYTES 1+; SEG.NEUTROPHILS 32.8 % (46.0-76.0); TARGET CELLS 1+
[2018-03-29 18:05] LABS: CARBON DIOXIDE (BICARBONATE) 26.7 MEQ/L (20-31)
[2018-03-29] MEDS ORDERED: CEFADROXIL500 MG PO (20:22)
[2018-03-29] MEDS ORDERED: MONTELUKAST SOD10 MG PO (20:23)
[2018-03-29] MEDS ORDERED: WARFARIN SODIUM5 MG PO (20:26)
[2018-03-29] MEDS ORDERED: OXYCODONE HCL15 MG PO (20:28)
[2018-03-29] MEDS ORDERED: DIGOXIN250 MCG PO (20:29)
[2018-03-29] MEDS ORDERED: ATORVASTATIN CA40 MG PO (20:30)
[2018-03-29] MEDS ORDERED: WARFARIN SODIUM1 MG PO (20:32)
[2018-03-29] MEDS ORDERED: POTASSIUM CHLO20 ME1 PO (20:33)
[2018-03-29] MEDS ORDERED: DULOXETINE HCL60 MG PO (20:33)
[2018-03-29] MEDS ORDERED: QUETIAPINE FUM100 MG PO (20:34)
[2018-03-29] MEDS ORDERED: FINASTERIDE5 MG PO (20:36)
[2018-03-29] MEDS ORDERED: EMBEDA ER 20-01 EACH PO (20:46)
[2018-03-29 22:23] LABS: APPEARANCE CLEAR ((CLEAR)); BILIRUBIN NEGATIVE; BLOOD SMALL; COLOR YELLOW ((YELLOW)); GLUCOSE (STRIP) NEGATIVE; KETONES NEGATIVE; LEUKOCYTES NEGATIVE; NITRITE NEGATIVE; PROTEIN (STRIP) NEGATIVE; SPECIFIC GRAVITY 1.009 (1.000-1.030)
[2018-03-29 22:32] LABS: BACTERIA NONE SEEN /HPF; EPITHELIAL CELLS NONE SEEN /HPF; MUCUS TRACE /LPF; RED BLOOD CELLS 0-5 /HPF (0-5); UCUL ADDED? NO; URIC ACID CRYSTALS 1+ /HPF; WHITE BLOOD CELLS 0-5 /HPF (0-5)
[2018-03-29 22:33] VITALS: BP 183/104
[2018-03-29 22:47] VITALS: BP 183/104
[2018-03-29 22:50] VITALS: BP 82/72
[2018-03-29 23:03] VITALS: BP 120/102
[2018-03-29 23:32] VITALS: BP 85/54
[2018-03-29 23:46] LABS: CHLORIDE 108 mEq/L (99-109); POTASSIUM 5.4 mEq/L (3.7-5.4); SODIUM 138 mEq/L (136-147)
[2018-03-29 23:48] LABS: GLUCOSE 123 mg/dL (70-99)
[2018-03-29 23:51] LABS: GFR ESTIMATE (CALCULATED) 23 mL/min/ (58.99-99999)
[2018-03-29 23:55] LABS: UREA NITROGEN (BUN) 76 mg/dL (9-23)
[2018-03-29 23:57] LABS: URIC ACID 7.4 mg/dL (3.1-9.2)
[2018-03-30] VITALS (33 sets, daily range): BP systolic 94–152; BP diastolic 44–87
[2018-03-30 06:32] LABS: COMMENTS - BLOOD GASES C+A+; DEVICE NC; O2 FLOW 1 L/MIN; PCO2 46 mm Hg (35-45); PO2 66 mm Hg (80-100); SITE LR; pH 7.37 (7.35-7.45)
[2018-03-30 06:33] LABS: BASE EXCESS 1.1 mEq/L (-3 to +3); BICARBONATE 26.6 mEq/L (22-26); CARBOXY HGB 2.4 % (0-5); METHEMOGLOBIN 0.8 % (0-1.5)
[2018-03-30 07:40] LABS: HEMATOCRIT 23.3 % (38.0-50.0); HEMOGLOBIN 7.2 G/DL (12.5-16.6); MCH 22.3 PG (29.0-34.0); MCHC 30.9 G/DL (30.0-36.0); MCV 72.1 FL (86-99); NRBC (%) 0.4 /100 WBC (0-0); RBC DIS.WIDTH-CV 33.8 % (11.8-14.6); RED BLOOD COUNT 3.23 M/uL (4.00-5.50); WHITE BLOOD COUNT 4.7 K/uL (4.1-10.2)
[2018-03-30 07:53] LABS: PTT 34.5 SEC (25-37)
[2018-03-30 07:57] LABS: INTER. NORMALIZED RATIO 1.6
[2018-03-30 07:59] LABS: IMM.PLATELET FRACTION 17.6 (1-7); PLAT.SUFFICIENCY VERY DECREASED
[2018-03-30 08:08] LABS: ALKALINE PHOSPHATASE 65 IU/L (3-129); ALT (GPT) 12 IU/L (3-49); CHLORIDE 110 MEQ/L (99-109); CREATININE 2.6 MG/DL (0.6-1.3); GFR ESTIMATE (CALCULATED) 27 mL/min/ (58.99-99999); GLUCOSE 127 mg/dL (70-99); POTASSIUM 5.5 MEQ/L (3.7-5.4); SODIUM 142 MEQ/L (136-147); UREA NITROGEN (BUN) 60 mg/dL (9-23)
[2018-03-30 08:10] LABS: AST (GOT) 19 IU/L (2-34); PLATELET COUNT 28 K/uL (156-360); TOTAL BILIRUBIN 1.1 MG/DL (0.0-1.0); TOTAL PROTEIN 5.2 G/DL (6.4-8.3)
[2018-03-30 08:16] LABS: THYROTROPIN (TSH) 1.5 MIU/L (0.4-5.5)
[2018-03-30 10:18] LABS: DIGOXIN 1.1 ng/mL (0.8-2.0)
[2018-03-30 16:41] LABS: CHLORIDE 110 MEQ/L (99-109); CREATININE 2.2 MG/DL (0.6-1.3); GFR ESTIMATE (CALCULATED) 32 mL/min/ (58.99-99999); GLUCOSE 132 mg/dL (70-99); POTASSIUM 5.8 MEQ/L (3.7-5.4); SODIUM 142 MEQ/L (136-147); UREA NITROGEN (BUN) 49 mg/dL (9-23)
[2018-03-30 17:26] LABS: UR CREATININE CONCENTRATION 43.2 MG/DL
[2018-03-31] VITALS (19 sets, daily range): BP systolic 97–158; BP diastolic 50–94
[2018-03-31 00:57] LABS: ALBUMIN 3.4 g/dL (3.2-4.8); CHLORIDE 107 mEq/L (99-109); POTASSIUM 5.1 mEq/L (3.7-5.4); SODIUM 142 mEq/L (136-147)
[2018-03-31 00:59] LABS: GLUCOSE 109 mg/dL (70-99)
[2018-03-31 01:00] LABS: TOTAL PROTEIN 5.6 g/dL (6.4-8.3)
[2018-03-31 01:03] LABS: ALKALINE PHOSPHATASE 80 IU/L (3-129); GFR ESTIMATE (CALCULATED) 36 mL/min/ (58.99-99999)
[2018-03-31 01:04] LABS: UREA NITROGEN (BUN) 42 mg/dL (9-23)
[2018-03-31 01:05] LABS: AST (GOT) 19 IU/L (2-34)
[2018-03-31 01:06] LABS: ALT (GPT) 13 IU/L (3-49)
[2018-03-31 01:10] LABS: TOTAL BILIRUBIN 1.4 mg/dL (0.0-1.0)
[2018-03-31 05:56] LABS: HEMATOCRIT 22.6 % (38.0-50.0); HEMOGLOBIN 7.2 G/DL (12.5-16.6); MCH 22.6 PG (29.0-34.0); MCHC 31.9 G/DL (30.0-36.0); MCV 71.1 FL (86-99); NRBC (%) 0.5 /100 WBC (0-0); RBC DIS.WIDTH-CV 33.8 % (11.8-14.6); RED BLOOD COUNT 3.18 M/uL (4.00-5.50); WHITE BLOOD COUNT 5.7 K/uL (4.1-10.2)
[2018-03-31 06:16] LABS: CHLORIDE 108 MEQ/L (99-109); CREATININE 1.9 MG/DL (0.6-1.3); GFR ESTIMATE (CALCULATED) 38 mL/min/ (58.99-99999); GLUCOSE 107 mg/dL (70-99); POTASSIUM 4.9 MEQ/L (3.7-5.4); SODIUM 144 MEQ/L (136-147); UREA NITROGEN (BUN) 40 mg/dL (9-23)
[2018-03-31 06:46] LABS: ACANTHOCYTES 2+; ANISOCYTOSIS 2+; ATYPICAL LYMPHOCYTE 0.8 %; BAND NEUTROPHILS 18.5 % (0-8.0); BASOPHILS 0.8 %; BURR CELLS 2+; EOSINOPHIL ABS CT 1.5; HYPOCHROMASIA 1+; LYMPHOCYTES 7.6 % (15.0-45.0); METAMYELOCYTES 5.9 %; MICROCYTOSIS 2+; MONOCYTES 2.5 % (0-9.0); MYELOCYTES 3.4 %; NUCLEATED RBC'S 1.7; OTHER 0.8; OVALOCYTES 2+; PLAT.SUFFICIENCY VERY DECREASED; POIKILOCYTOSIS 3+; POLYCHROMASIA 3+; SCHISTOCYTES 2+; SEG.NEUTROPHILS 33.6 % (46.0-76.0)
[2018-03-31 06:47] LABS: EOSINOPHILS 26.1 % (0-5.0)
[2018-03-31 08:55] LABS: PLATELET COUNT 27 K/uL (156-360)
[2018-03-31 09:20] LABS: IMM.PLATELET FRACTION 20.8 (1-7)
[2018-04-01] VITALS (7 sets, daily range): BP systolic 119–135; BP diastolic 56–66
[2018-04-01 05:20] LABS: HEMATOCRIT 21.5 % (38.0-50.0); MCHC 32.6 G/DL (30.0-36.0); MCV 70.5 FL (86-99); NRBC (%) 0.4 /100 WBC (0-0); RBC DIS.WIDTH-CV 33.5 % (11.8-14.6); RED BLOOD COUNT 3.05 M/uL (4.00-5.50)
[2018-04-01 05:34] LABS: CHLORIDE 105 MEQ/L (99-109); CREATININE 1.7 MG/DL (0.6-1.3); GFR ESTIMATE (CALCULATED) 43 mL/min/ (58.99-99999); GLUCOSE 91 mg/dL (70-99); POTASSIUM 4.2 MEQ/L (3.7-5.4); SODIUM 138 MEQ/L (136-147); UREA NITROGEN (BUN) 26 mg/dL (9-23)
[2018-04-01 05:59] LABS: ABS NEUTROPHIL COUNT 1.4; ACANTHOCYTES 1+; ANISOCYTOSIS 2+; BAND NEUTROPHILS 12.6 % (0-8.0); BASOPHILS 3.6 %; BURR CELLS 2+; EOSINOPHIL ABS CT 3.7; EOSINOPHILS 53.2 % (0-5.0); HYPOCHROMASIA 2+; LYMPHOCYTES 9.9 % (15.0-45.0); METAMYELOCYTES 8.1 %; MICROCYTOSIS 1+; MYELOCYTES 4.5 %; OVALOCYTES 2+; PLAT.SUFFICIENCY VERY DECREASED; POIKILOCYTOSIS 3+; POLYCHROMASIA 1+; SCHISTOCYTES 2+; SEG.NEUTROPHILS 8.1 % (46.0-76.0); SPHEROCYTES 2+; TARGET CELLS 3+
[2018-04-01 06:09] LABS: PLATELET COUNT 35 K/uL (156-360)
[2018-04-02 04:40] VITALS: BP 138/63
[2018-04-02 07:53] LABS: CHLORIDE 107 MEQ/L (99-109); CREATININE 1.5 MG/DL (0.6-1.3); GFR ESTIMATE (CALCULATED) 50 mL/min/ (58.99-99999); GLUCOSE 98 mg/dL (70-99); POTASSIUM 3.8 MEQ/L (3.7-5.4); SODIUM 143 MEQ/L (136-147); UREA NITROGEN (BUN) 20 mg/dL (9-23)
[2018-04-02 07:56] LABS: HEMATOCRIT 23.8 % (38.0-50.0); HEMOGLOBIN 7.6 G/DL (12.5-16.6); MCH 22.4 PG (29.0-34.0); MCHC 31.9 G/DL (30.0-36.0); MCV 70.2 FL (86-99); RBC DIS.WIDTH-CV 33.2 % (11.8-14.6); RED BLOOD COUNT 3.39 M/uL (4.00-5.50); WHITE BLOOD COUNT 7.5 K/uL (4.1-10.2)
[2018-04-02 08:08] LABS: PLAT.SUFFICIENCY VERY DECREASED; PLATELET COUNT 32 K/uL (156-360)
[2018-04-02 08:41] VITALS: BP 137/66
[2018-04-02 11:41] VITALS: BP 135/67
[2018-04-02 15:50] VITALS: BP 118/58
[2018-04-02 19:15] VITALS: BP 142/70
[2018-04-02 23:56] VITALS: BP 141/66
[2018-04-03 04:48] VITALS: BP 120/72
[2018-04-03 06:26] LABS: CHLORIDE 107 MEQ/L (99-109); CREATININE 1.3 MG/DL (0.6-1.3); GFR ESTIMATE (CALCULATED) > 59 mL/min/ (58.99-99999); GLUCOSE 92 mg/dL (70-99); POTASSIUM 3.9 MEQ/L (3.7-5.4); SODIUM 146 MEQ/L (136-147); UREA NITROGEN (BUN) 19 mg/dL (9-23)
[2018-04-03 07:32] VITALS: BP 132/67
[2018-04-03 11:46] VITALS: BP 137/67
[2018-04-03 15:29] VITALS: BP 137/76
[2018-04-03 19:29] VITALS: BP 147/86
[2018-04-04 00:06] VITALS: BP 148/76
[2018-04-04 04:40] VITALS: BP 138/80
[2018-04-04 06:43] LABS: HEMATOCRIT 24.6 % (38.0-50.0); HEMOGLOBIN 7.9 G/DL (12.5-16.6); MCH 22.3 PG (29.0-34.0); MCHC 32.1 G/DL (30.0-36.0); MCV 69.3 FL (86-99); NRBC (%) 0.9 /100 WBC (0-0); RBC DIS.WIDTH-CV 32.6 % (11.8-14.6); RED BLOOD COUNT 3.55 M/uL (4.00-5.50); WHITE BLOOD COUNT 8.7 K/uL (4.1-10.2)
[2018-04-04 07:15] VITALS: BP 148/73
[2018-04-04 07:16] LABS: IMM.PLATELET FRACTION 26.3 (1-7); PLATELET COUNT 38 K/uL (156-360)
[2018-04-04 11:45] VITALS: BP 171/79
[2018-04-04] MEDS ORDERED: DICLOXACILLIN500 MG PO (12:58)
[2018-04-04] MEDS ORDERED: ALPRAZOLAM0.25 M2 PO (13:03)
== END 2018-04-04 16:11 | disposition home health service (06) | DRG 853 ==
LOC: EME 13:55 → 4WEST 20:46 → EDOF 20:46 → ENRESERV 20:49 → EDOF 21:51 → 4WEST 22:27 → ENRESERV 03-31 21:55 → 4EAST 03-31 22:51 → ENPENDDIS 04-04 → 4EAST 04-04 16:11
PROVIDERS: Emergency Medicine; Family Medicine; Hospitalist; Internal Medicine Critical Care Medicine; Surgery
PROC: 06HY33Z Insertion of Infusion Device into Lower Vein, Percutaneous Approach (ICD-10-PCS; principal; 2018-03-29)
PROC: 0M930ZZ Drainage of Right Elbow Bursa and Ligament, Open Approach (ICD-10-PCS; 2018-03-29)
PROC: 30233K1 Transfusion of Nonautologous Frozen Plasma into Peripheral Vein, Percutaneous Approach (ICD-10-PCS; 2018-03-30)
DX: A41.9 Sepsis, unspecified organism (principal); L03.113 Cellulitis of right upper limb; M71.121 Other infective bursitis, right elbow; R65.21 Severe sepsis with septic shock; N17.9 Acute kidney failure, unspecified; G93.41 Metabolic encephalopathy; M00.9 Pyogenic arthritis, unspecified; D61.818 Other pancytopenia; R79.1 Abnormal coagulation profile; T45.515A Adverse effect of anticoagulants, initial encounter; E87.5 Hyperkalemia; D46.Z Other myelodysplastic syndromes; I48.2 Chronic atrial fibrillation; J44.9 Chronic obstructive pulmonary disease, unspecified; Z99.81 Dependence on supplemental oxygen; G47.33 Obstructive sleep apnea (adult) (pediatric); I12.9 Hypertensive chronic kidney disease with stage 1 through stage 4 chronic kidney disease, or unspecified chronic kidney disease; N18.2 Chronic kidney disease, stage 2 (mild); D63.1 Anemia in chronic kidney disease; K21.9 Gastro-esophageal reflux disease without esophagitis; I27.20 Pulmonary hypertension, unspecified; G89.4 Chronic pain syndrome; M10.9 Gout, unspecified; M06.9 Rheumatoid arthritis, unspecified; L40.50 Arthropathic psoriasis, unspecified; Q60.0 Renal agenesis, unilateral; G25.3 Myoclonus; E66.01 Morbid (severe) obesity due to excess calories; Z68.41 Body mass index [BMI] 40.0-44.9, adult; G43.909 Migraine, unspecified, not intractable, without status migrainosus; J98.11 Atelectasis; M79.7 Fibromyalgia; E86.0 Dehydration; E78.00 Pure hypercholesterolemia, unspecified; I87.8 Other specified disorders of veins; F41.9 Anxiety disorder, unspecified; F32.9 Major depressive disorder, single episode, unspecified; Z79.891 Long term (current) use of opiate analgesic; Z91.19 Patient's noncompliance with other medical treatment and regimen; Z85.828 Personal history of other malignant neoplasm of skin; Z86.711 Personal history of pulmonary embolism; Z86.718 Personal history of other venous thrombosis and embolism; Z86.73 Personal history of transient ischemic attack (TIA), and cerebral infarction without residual deficits; Z96.653 Presence of artificial knee joint, bilateral
CPT/HCPCS: 36415; 36600; 70450; 71045; 73080; 80047; 80048; 80048 91; 80053; 80162; 80202; 81003; 82436; 82570; 82803; 82948; 83605; 83615; 83690; 83880; 83935; 84133; 84145 90; 84300; 84443; 84484; 84550; 85025; 85027; 85610; 85730; 86850; 86900; 86901; 86920; 87040; 87070; 87075; 87205; 87641; 93005; 93306; 93970; 94640; 94640 76; 94760; 94799; 99202; 99281; 99285; C1751; J0690; J1170; J1644; J2270; J2405; J2543; J2765; J3370; J3430; J7030; J7040; J7042; J7050; P9017

== ENCOUNTER 2018-04-10 17:45 | Inpatient (IN) | payer OTHER ==
[~2018-04-10] VITALS: Ht 182.9 cm; Wt 140.4 kg
[~2018-04-10 17:45] MED LIST changes: +ATORVASTATIN CA40 MG PO; +CEFADROXIL500 MG PO; +DICLOXACILLIN500 MG PO; +DULOXETINE HCL60 MG PO; +EMBEDA ER 20-01 EACH PO; +MONTELUKAST SOD10 MG PO; +OXYCODONE HCL15 MG PO; -OXYCONTIN15 MG PO; +POTASSIUM CHLO20 ME1 PO; +WARFARIN SODIUM1 MG PO
[2018-04-10 19:31] LABS: APPEARANCE CLEAR ((CLEAR)); BILIRUBIN NEGATIVE; BLOOD NEGATIVE; COLOR YELLOW ((YELLOW)); GLUCOSE (STRIP) NEGATIVE; KETONES NEGATIVE; LEUKOCYTES NEGATIVE; NITRITE NEGATIVE; PROTEIN (STRIP) 30; SPECIFIC GRAVITY 1.017 (1.000-1.030); UCUL ADDED? NO; UROBILINOGEN 0.2 MG/DL (0.2-1.0)
[2018-04-10 19:37] LABS: HEMATOCRIT 22.3 % (38.0-50.0); HEMOGLOBIN 7.4 G/DL (12.5-16.6); MCH 23.4 PG (29.0-34.0); MCHC 33.2 G/DL (30.0-36.0); MCV 70.6 FL (86-99); NRBC (%) 1.3 /100 WBC (0-0); RBC DIS.WIDTH-CV 31.7 % (11.8-14.6); RED BLOOD COUNT 3.16 M/uL (4.00-5.50); WHITE BLOOD COUNT 8.8 K/uL (4.1-10.2)
[2018-04-10 19:38] LABS: IMM.PLATELET FRACTION 25.8 (1-7); PLATELET COUNT 38 K/uL (156-360)
[2018-04-10 19:41] LABS: CHLORIDE 104 mEq/L (99-109); POTASSIUM 4.4 mEq/L (3.7-5.4); SODIUM 137 mEq/L (136-147)
[2018-04-10 19:42] LABS: GLUCOSE 134 mg/dL (70-99)
[2018-04-10 19:46] LABS: CREATININE 1.9 mg/dL (0.6-1.3); GFR ESTIMATE (CALCULATED) 38 mL/min/ (58.99-99999)
[2018-04-10 19:47] LABS: UREA NITROGEN (BUN) 37 mg/dL (9-23)
[2018-04-10 20:20] LABS: ABS NEUTROPHIL COUNT 4.1; ACANTHOCYTES 2+; ANISOCYTOSIS 2+; BAND NEUTROPHILS 22.6 % (0-8.0); BASOPH.STIPPLING 1+; BURR CELLS 1+; EOSINOPHIL ABS CT 0.8; EOSINOPHILS 9.6 % (0-5.0); HELMET CELLS 2+; HYPOCHROMASIA 3+; LYMPHOCYTES 10.4 % (15.0-45.0); METAMYELOCYTES 14.8 %; MICROCYTOSIS 2+; MONOCYTES 1.7 % (0-9.0); NUCLEATED RBC'S 1.7; OTHER 17.4; OVALOCYTES 1+; PLAT.SUFFICIENCY VERY DECREASED; POIKILOCYTOSIS 3+; SCHISTOCYTES 3+; SPHEROCYTES 2+; TARGET CELLS 1+; TEAR DROP CELLS 1+
[2018-04-10] MEDS ORDERED: ACETAMINOPHEN325 M1 PO (21:36)
[2018-04-11] VITALS (7 sets, daily range): BP systolic 81–162; BP diastolic 48–126
[2018-04-11 08:06] LABS: DIGOXIN 1.9 ng/mL (0.8-2.0)
[2018-04-11 10:17] LABS: HEMATOCRIT 22.7 % (38.0-50.0); HEMOGLOBIN 7.2 G/DL (12.5-16.6); MCH 22.7 PG (29.0-34.0); MCHC 31.7 G/DL (30.0-36.0); MCV 71.6 FL (86-99); NRBC (%) 1.2 /100 WBC (0-0); RED BLOOD COUNT 3.17 M/uL (4.00-5.50); WHITE BLOOD COUNT 11.1 K/uL (4.1-10.2)
[2018-04-11 10:23] LABS: ALBUMIN 2.8 G/DL (3.2-4.8); CHLORIDE 107 MEQ/L (99-109); POTASSIUM 4.2 MEQ/L (3.7-5.4); SODIUM 137 MEQ/L (136-147)
[2018-04-11 10:29] LABS: ALKALINE PHOSPHATASE 59 IU/L (3-129); ALT (GPT) 6 IU/L (3-49); AST (GOT) 11 IU/L (2-34); CREATININE 1.9 MG/DL (0.6-1.3); GFR ESTIMATE (CALCULATED) 38 mL/min/ (58.99-99999); GLUCOSE 119 mg/dL (70-99); TOTAL PROTEIN 5.5 G/DL (6.4-8.3); UREA NITROGEN (BUN) 37 mg/dL (9-23)
[2018-04-11 10:45] LABS: ABS NEUTROPHIL COUNT 5.5; ACANTHOCYTES 1+; ANISOCYTOSIS 2+; BAND NEUTROPHILS 31.3 % (0-8.0); BASOPHILS 0.9 %; BURR CELLS 2+; EOSINOPHIL ABS CT 1.6; EOSINOPHILS 14.8 % (0-5.0); IMM.PLATELET FRACTION 24.2 (1-7); LYMPHOCYTES 5.2 % (15.0-45.0); METAMYELOCYTES 16.5 %; MICROCYTOSIS 1+; MYELOCYTES 6.1 %; NUCLEATED RBC'S 5.2; OTHER 6.9; OVALOCYTES 1+; PLAT.SUFFICIENCY DECREASED; PLATELET COUNT 33 K/uL (156-360); POIKILOCYTOSIS 3+; POLYCHROMASIA 2+; SCHISTOCYTES 1+; TOX.VACUOLIZATION 2+
[2018-04-11 10:46] LABS: SEG.NEUTROPHILS 18.3 % (46.0-76.0)
[2018-04-11 10:58] LABS: COMMENTS - BLOOD GASES A+C+; O2 FLOW 15 L/MIN; SITE RR
[2018-04-11 10:59] LABS: DEVICE NRBM; FI02 100 %; PCO2 33 mm Hg (35-45); PO2 187 mm Hg (80-100); TOTAL RESP RATE 24 resp/min; pH 7.38 (7.35-7.45)
[2018-04-11 11:00] LABS: BICARBONATE 19.5 mEq/L (22-26); CARBOXY HGB 2.2 % (0-5); METHEMOGLOBIN 0.9 % (0-1.5); O2 SATURATION (CALCULATED) 96.3 % (95-99)
[2018-04-12] VITALS (12 sets, daily range): BP systolic 94–147; BP diastolic 50–66
[2018-04-12 06:00] LABS: CHLORIDE 106 MEQ/L (99-109); CREATININE 1.8 MG/DL (0.6-1.3); GFR ESTIMATE (CALCULATED) 41 mL/min/ (58.99-99999); GLUCOSE 104 mg/dL (70-99); POTASSIUM 4.3 MEQ/L (3.7-5.4); SODIUM 137 MEQ/L (136-147); UREA NITROGEN (BUN) 39 mg/dL (9-23)
[2018-04-12 06:04] LABS: MCH 22.8 PG (29.0-34.0); MCHC 31.9 G/DL (30.0-36.0); MCV 71.4 FL (86-99); NRBC (%) 1.6 /100 WBC (0-0); RBC DIS.WIDTH-CV 31.9 % (11.8-14.6); RED BLOOD COUNT 2.94 M/uL (4.00-5.50); WHITE BLOOD COUNT 7.4 K/uL (4.1-10.2)
[2018-04-12 06:05] LABS: HEMOGLOBIN 6.7 G/DL (12.5-16.6)
[2018-04-12 06:06] LABS: PLATELET COUNT 29 K/uL (156-360)
[2018-04-12 12:26] LABS: IMM.PLATELET FRACTION 25.7 (1-7)
[2018-04-12 15:13] LABS: HEMATOCRIT 21.3 % (38.0-50.0); MCV 72.7 FL (86-99)
[2018-04-13 06:35] LABS: HEMATOCRIT 24.6 % (38.0-50.0); HEMOGLOBIN 7.9 G/DL (12.5-16.6); MCH 23.5 PG (29.0-34.0); MCHC 32.1 G/DL (30.0-36.0); MCV 73.2 FL (86-99); NRBC (%) 1.3 /100 WBC (0-0); RBC DIS.WIDTH-CV 30.4 % (11.8-14.6); RED BLOOD COUNT 3.36 M/uL (4.00-5.50); WHITE BLOOD COUNT 7.8 K/uL (4.1-10.2)
[2018-04-13 06:53] LABS: CHLORIDE 108 MEQ/L (99-109); CREATININE 1.6 MG/DL (0.6-1.3); GFR ESTIMATE (CALCULATED) 46 mL/min/ (58.99-99999); GLUCOSE 93 mg/dL (70-99); POTASSIUM 4.7 MEQ/L (3.7-5.4); SODIUM 141 MEQ/L (136-147); UREA NITROGEN (BUN) 36 mg/dL (9-23)
[2018-04-13 07:33] LABS: ABS NEUTROPHIL COUNT 1.1; ACANTHOCYTES 1+; ANISOCYTOSIS 2+; ATYPICAL LYMPHOCYTE 0.8 %; BAND NEUTROPHILS 12.2 % (0-8.0); BASOPH.STIPPLING 1+; BASOPHILS 3.3 %; BURR CELLS 2+; EOSINOPHIL ABS CT 3.6; EOSINOPHILS 46.3 % (0-5.0); HELMET CELLS 1+; HYPOCHROMASIA 1+; LYMPHOCYTES 12.2 % (15.0-45.0); MACROCYTES 1+; METAMYELOCYTES 5.7 %; MICROCYTOSIS 1+; MONOCYTES 2.4 % (0-9.0); MYELOCYTES 9.8 %; NUCLEATED RBC'S 4.1; OTHER 4.9; OVALOCYTES 2+; PLAT.SUFFICIENCY VERY DECREASED; POIKILOCYTOSIS 3+; POLYCHROMASIA 3+; SCHISTOCYTES 1+; SEG.NEUTROPHILS 2.4 % (46.0-76.0)
[2018-04-13 07:40] VITALS: BP 119/65
[2018-04-13 08:12] LABS: IMM.PLATELET FRACTION 26.8 (1-7)
[2018-04-13 08:21] LABS: PLATELET COUNT 27 K/uL (156-360)
[2018-04-13 15:17] VITALS: BP 137/87
[2018-04-13 23:13] VITALS: BP 117/58
[2018-04-14 05:26] LABS: HEMOGLOBIN 7.2 G/DL (12.5-16.6); MCH 23.9 PG (29.0-34.0); MCHC 32.7 G/DL (30.0-36.0); MCV 73.1 FL (86-99); NRBC (%) 0.7 /100 WBC (0-0); RBC DIS.WIDTH-CV 31.1 % (11.8-14.6); RED BLOOD COUNT 3.01 M/uL (4.00-5.50); WHITE BLOOD COUNT 8.6 K/uL (4.1-10.2)
[2018-04-14 06:16] LABS: CHLORIDE 107 MEQ/L (99-109); CREATININE 1.3 MG/DL (0.6-1.3); GFR ESTIMATE (CALCULATED) > 59 mL/min/ (58.99-99999); GLUCOSE 92 mg/dL (70-99); POTASSIUM 4.1 MEQ/L (3.7-5.4); SODIUM 140 MEQ/L (136-147); UREA NITROGEN (BUN) 27 mg/dL (9-23)
[2018-04-14 07:13] LABS: ABS NEUTROPHIL COUNT 5.1; ACANTHOCYTES 2+; ANISOCYTOSIS 1+; BAND NEUTROPHILS 14.7 % (0-8.0); BASOPHILS 1.7 %; EOSINOPHIL ABS CT 1.2; HYPOCHROMASIA 2+; IMM.PLATELET FRACTION 23.2 (1-7); MACROCYTES 1+; METAMYELOCYTES 6.9 %; MICROCYTOSIS 1+; MONOCYTES 3.5 % (0-9.0); MYELOCYTES 8.6 %; NUCLEATED RBC'S 0.9; PLAT.SUFFICIENCY VERY DECREASED; POIKILOCYTOSIS 3+; POLYCHROMASIA 3+; SCHISTOCYTES 1+
[2018-04-14 07:25] LABS: EOSINOPHILS 13.8 % (0-5.0); PLATELET COUNT 20 K/uL (156-360); SEG.NEUTROPHILS 44.8 % (46.0-76.0)
[2018-04-14 07:42] VITALS: BP 109/65
[2018-04-14 12:45] VITALS: BP 111/70
[2018-04-14 12:50] VITALS: BP 109/55
[2018-04-14 15:33] VITALS: BP 126/64
[2018-04-14 23:54] VITALS: BP 140/73
[2018-04-15 06:17] LABS: CHLORIDE 108 MEQ/L (99-109); CREATININE 1.1 MG/DL (0.6-1.3); GFR ESTIMATE (CALCULATED) > 59 mL/min/ (58.99-99999); HEMOGLOBIN 9.1 G/DL (12.5-16.6); MCH 23.2 PG (29.0-34.0); MCHC 31.4 G/DL (30.0-36.0); NRBC (%) 0.6 /100 WBC (0-0); POTASSIUM 4.7 MEQ/L (3.7-5.4); RBC DIS.WIDTH-CV 30.5 % (11.8-14.6); SODIUM 141 MEQ/L (136-147); UREA NITROGEN (BUN) 24 mg/dL (9-23)
[2018-04-15 06:19] LABS: GLUCOSE 150 mg/dL (70-99)
[2018-04-15 06:22] LABS: RED BLOOD COUNT 3.92 M/uL (4.00-5.50)
[2018-04-15 07:43] LABS: ABS NEUTROPHIL COUNT 4.7; ANISOCYTOSIS 2+; BAND NEUTROPHILS 6.1 % (0-8.0); BASOPHILS 5.2 %; BURR CELLS 2+; EOSINOPHIL ABS CT 0.7; EOSINOPHILS 8.7 % (0-5.0); HYPOCHROMASIA 3+; IMM.PLATELET FRACTION 23.5 (1-7); LYMPHOCYTES 7.8 % (15.0-45.0); MACROCYTES 1+; METAMYELOCYTES 6.1 %; MICROCYTOSIS 1+; MONOCYTES 2.6 % (0-9.0); MYELOCYTES 7.8 %; NUCLEATED RBC'S 1.7; OTHER 3.5; PLAT.SUFFICIENCY VERY DECREASED; POIKILOCYTOSIS 3+; POLYCHROMASIA 3+; SCHISTOCYTES 1+; SEG.NEUTROPHILS 52.2 % (46.0-76.0); SPHEROCYTES 3+; TARGET CELLS 1+
[2018-04-15 07:46] VITALS: BP 158/87
[2018-04-15 07:47] LABS: PLATELET COUNT 16 K/uL (156-360)
[2018-04-15 15:34] VITALS: BP 146/76
[2018-04-16] VITALS: BP 122/76
[2018-04-16 05:58] LABS: HEMATOCRIT 27.6 % (38.0-50.0); MCH 23.6 PG (29.0-34.0); MCHC 32.6 G/DL (30.0-36.0); MCV 72.4 FL (86-99); NRBC (%) 0.4 /100 WBC (0-0); RBC DIS.WIDTH-CV 30.6 % (11.8-14.6); RED BLOOD COUNT 3.81 M/uL (4.00-5.50); WHITE BLOOD COUNT 10.8 K/uL (4.1-10.2)
[2018-04-16 06:01] LABS: CHLORIDE 106 MEQ/L (99-109); CREATININE 1.1 MG/DL (0.6-1.3); GFR ESTIMATE (CALCULATED) > 59 mL/min/ (58.99-99999); GLUCOSE 161 mg/dL (70-99); SODIUM 142 MEQ/L (136-147); UREA NITROGEN (BUN) 28 mg/dL (9-23)
[2018-04-16 06:38] LABS: ABS NEUTROPHIL COUNT 5.8; ANISOCYTOSIS 2+; BAND NEUTROPHILS 8.9 % (0-8.0); BASOPHILS 4.4 %; BURR CELLS 2+; EOSINOPHIL ABS CT 0.3; EOSINOPHILS 2.7 % (0-5.0); HYPOCHROMASIA 1+; IMM.PLATELET FRACTION 29.1 (1-7); LYMPHOCYTES 7.1 % (15.0-45.0); MACROCYTES 1+; METAMYELOCYTES 9.7 %; MICROCYTOSIS 1+; MYELOCYTES 12.4 %; NUCLEATED RBC'S 0.9; OTHER 9.7; PLAT.SUFFICIENCY DECREASED; POIKILOCYTOSIS 3+; POLYCHROMASIA 3+; SCHISTOCYTES 2+; SEG.NEUTROPHILS 45.1 % (46.0-76.0); SMUDGE CELLS 7.1; TARGET CELLS 1+
[2018-04-16 06:44] LABS: PLATELET COUNT 21 K/uL (156-360)
[2018-04-16 06:54] VITALS: BP 137/63
[2018-04-16 15:07] VITALS: BP 123/63
[2018-04-16 21:21] VITALS: BP 140/66
[2018-04-16 23:51] VITALS: BP 155/72
[2018-04-17 06:48] LABS: CHLORIDE 105 MEQ/L (99-109); GFR ESTIMATE (CALCULATED) > 59 mL/min/ (58.99-99999); GLUCOSE 109 mg/dL (70-99); POTASSIUM 3.5 MEQ/L (3.7-5.4); SODIUM 140 MEQ/L (136-147); UREA NITROGEN (BUN) 30 mg/dL (9-23)
[2018-04-17 06:57] LABS: HEMOGLOBIN 8.8 G/DL (12.5-16.6); MCH 23.3 PG (29.0-34.0); MCHC 32.6 G/DL (30.0-36.0); MCV 71.6 FL (86-99); NRBC (%) 0.4 /100 WBC (0-0); RBC DIS.WIDTH-CV 30.1 % (11.8-14.6); RED BLOOD COUNT 3.77 M/uL (4.00-5.50); WHITE BLOOD COUNT 9.6 K/uL (4.1-10.2)
[2018-04-17 07:27] VITALS: BP 157/72
[2018-04-17 07:40] LABS: ABS NEUTROPHIL COUNT 4.7; ANISOCYTOSIS 2+; BAND NEUTROPHILS 20.5 % (0-8.0); BASOPHILS 1.7 %; BURR CELLS 1+; EOSINOPHIL ABS CT 0.3; EOSINOPHILS 3.4 % (0-5.0); HEMATOLOGY COMMENT 1 SN; HYPOCHROMASIA 2+; LYMPHOCYTES 14.5 % (15.0-45.0); METAMYELOCYTES 15.4 %; MICROCYTOSIS 2+; MONOCYTES 2.6 % (0-9.0); MYELOCYTES 6.9 %; NUCLEATED RBC'S 0.9; OTHER 6.8; OVALOCYTES 2+; PLAT.SUFFICIENCY VERY DECREASED; POIKILOCYTOSIS 3+; POLYCHROMASIA 3+; SCHISTOCYTES 2+; SEG.NEUTROPHILS 28.2 % (46.0-76.0); TOX.VACUOLIZATION 1+
[2018-04-17 07:41] LABS: PLATELET COUNT 21 K/uL (156-360)
[2018-04-17 14:56] VITALS: BP 163/76
[2018-04-18 02:05] VITALS: BP 143/65
[2018-04-18 06:01] LABS: CHLORIDE 103 MEQ/L (99-109); GFR ESTIMATE (CALCULATED) > 59 mL/min/ (58.99-99999); GLUCOSE 98 mg/dL (70-99); POTASSIUM 3.4 MEQ/L (3.7-5.4); SODIUM 141 MEQ/L (136-147); UREA NITROGEN (BUN) 30 mg/dL (9-23)
[2018-04-18 06:41] LABS: HEMATOCRIT 25.8 % (38.0-50.0); HEMOGLOBIN 8.6 G/DL (12.5-16.6); MCH 23.8 PG (29.0-34.0); MCHC 33.3 G/DL (30.0-36.0); MCV 71.5 FL (86-99); NRBC (%) 0.6 /100 WBC (0-0); RBC DIS.WIDTH-CV 30.4 % (11.8-14.6); RED BLOOD COUNT 3.61 M/uL (4.00-5.50); WHITE BLOOD COUNT 8.3 K/uL (4.1-10.2)
[2018-04-18 07:24] VITALS: BP 172/81
[2018-04-18 07:24] LABS: ABS NEUTROPHIL COUNT 3.8; ACANTHOCYTES 2+; ANISOCYTOSIS 2+; BAND NEUTROPHILS 15.6 % (0-8.0); BASOPHILS 1.7 %; EOSINOPHIL ABS CT 0.6; HYPOCHROMASIA 2+; IMM.PLATELET FRACTION 28.9 (1-7); LYMPHOCYTES 12.2 % (15.0-45.0); METAMYELOCYTES 9.6 %; MICROCYTOSIS 1+; MONOCYTES 1.7 % (0-9.0); MYELOCYTES 17.4 %; OTHER 5.2; PLAT.SUFFICIENCY VERY DECREASED; POIKILOCYTOSIS 3+; POLYCHROMASIA 3+; SCHISTOCYTES 1+; SEG.NEUTROPHILS 29.6 % (46.0-76.0); TARGET CELLS 1+
[2018-04-18 07:47] LABS: PLATELET COUNT 16 K/uL (156-360)
[2018-04-18 09:37] LABS: C DIFF TOXIN NEGATIVE (NEGATIVE)
[2018-04-18 15:07] VITALS: BP 135/62
[2018-04-18 23:56] VITALS: BP 113/64
[2018-04-19 06:24] LABS: HEMATOCRIT 26.2 % (38.0-50.0); HEMOGLOBIN 8.4 G/DL (12.5-16.6); MCH 23.1 PG (29.0-34.0); MCHC 32.1 G/DL (30.0-36.0); MCV 72.2 FL (86-99); NRBC (%) 0.6 /100 WBC (0-0); RBC DIS.WIDTH-CV 30.5 % (11.8-14.6); RED BLOOD COUNT 3.63 M/uL (4.00-5.50)
[2018-04-19 06:38] LABS: CHLORIDE 104 MEQ/L (99-109); GFR ESTIMATE (CALCULATED) > 59 mL/min/ (58.99-99999); GLUCOSE 91 mg/dL (70-99); POTASSIUM 3.6 MEQ/L (3.7-5.4); SODIUM 141 MEQ/L (136-147); UREA NITROGEN (BUN) 25 mg/dL (9-23)
[2018-04-19 06:42] LABS: ABS NEUTROPHIL COUNT 3.9; ANISOCYTOSIS 3+; BAND NEUTROPHILS 27.6 % (0-8.0); BASOPHILS 2.6 %; BURR CELLS 1+; EOSINOPHIL ABS CT 0.8; EOSINOPHILS 9.5 % (0-5.0); HYPOCHROMASIA 2+; IMM.PLATELET FRACTION 25.1 (1-7); LYMPHOCYTES 18.1 % (15.0-45.0); MACROCYTES 1+; METAMYELOCYTES 5.2 %; MICROCYTOSIS 2+; MONOCYTES 0.8 % (0-9.0); MYELOCYTES 15.5 %; NUCLEATED RBC'S 0.9; PLAT.SUFFICIENCY VERY DECREASED; PLATELET COUNT 15 K/uL (156-360); POIKILOCYTOSIS 2+; POLYCHROMASIA 1+; SCHISTOCYTES 1+; SEG.NEUTROPHILS 20.7 % (46.0-76.0); TARGET CELLS 2+
[2018-04-19 07:39] VITALS: BP 126/66
[2018-04-19] MEDS ORDERED: DOXYCYCLINE HY100 M3 PO (11:10)
[2018-04-19] MEDS ORDERED: CIPROFLOXACIN500 M1 PO (11:10)
[2018-04-19] MEDS ORDERED: AMLODIPINE BESYL5 MG PO (11:11)
[2018-04-19] MEDS ORDERED: PREDNISONE20 MG PO (12:07)
[2018-04-19 14:12] VITALS: BP 134/60
[2018-04-19 14:30] VITALS: BP 142/63
[2018-04-19 15:30] VITALS: BP 144/65
[2018-04-19 15:52] VITALS: BP 145/66
== END 2018-04-19 18:19 | disposition home health service (06) | DRG 871 ==
LOC: EME 17:45 → 5SOUTH 23:08 → EDOF 23:08 → CANRESERV 23:12 → ENRESERV 23:12 → CANRESERV 23:14 → ENRESERV 23:14 → 5SOUTH 04-11 00:34 → EDOF 04-11 00:34 → 5SOUTH 04-13 08:12
PROVIDERS: Hospitalist; Internal Medicine; Physician Assistant
PROC: 30233N1 Transfusion of Nonautologous Red Blood Cells into Peripheral Vein, Percutaneous Approach (ICD-10-PCS; principal; 2018-04-12)
PROC: 30233R1 Transfusion of Nonautologous Platelets into Peripheral Vein, Percutaneous Approach (ICD-10-PCS; 2018-04-19)
DX: A41.9 Sepsis, unspecified organism (principal); J18.9 Pneumonia, unspecified organism; R65.20 Severe sepsis without septic shock; N17.9 Acute kidney failure, unspecified; D46.Z Other myelodysplastic syndromes; D69.59 Other secondary thrombocytopenia; J44.0 Chronic obstructive pulmonary disease with (acute) lower respiratory infection; J44.1 Chronic obstructive pulmonary disease with (acute) exacerbation; Z99.81 Dependence on supplemental oxygen; M71.121 Other infective bursitis, right elbow; L03.113 Cellulitis of right upper limb; I13.0 Hypertensive heart and chronic kidney disease with heart failure and stage 1 through stage 4 chronic kidney disease, or unspecified chronic kidney disease; I50.9 Heart failure, unspecified; N18.9 Chronic kidney disease, unspecified; R41.82 Altered mental status, unspecified; T40.4X5A Adverse effect of other synthetic narcotics, initial encounter; T43.595A Adverse effect of other antipsychotics and neuroleptics, initial encounter; R39.15 Urgency of urination; N13.4 Hydroureter; N20.0 Calculus of kidney; E86.0 Dehydration; I27.20 Pulmonary hypertension, unspecified; I48.2 Chronic atrial fibrillation; G47.30 Sleep apnea, unspecified; E66.01 Morbid (severe) obesity due to excess calories; Z68.41 Body mass index [BMI] 40.0-44.9, adult; Q60.0 Renal agenesis, unilateral; E78.00 Pure hypercholesterolemia, unspecified; G40.909 Epilepsy, unspecified, not intractable, without status epilepticus; K21.9 Gastro-esophageal reflux disease without esophagitis; L40.50 Arthropathic psoriasis, unspecified; M06.9 Rheumatoid arthritis, unspecified; M10.9 Gout, unspecified; M79.7 Fibromyalgia; N62 Hypertrophy of breast; F32.9 Major depressive disorder, single episode, unspecified; F41.9 Anxiety disorder, unspecified; Z85.828 Personal history of other malignant neoplasm of skin; Z86.73 Personal history of transient ischemic attack (TIA), and cerebral infarction without residual deficits; Z86.718 Personal history of other venous thrombosis and embolism; Z79.01 Long term (current) use of anticoagulants; Z96.653 Presence of artificial knee joint, bilateral; Z90.49 Acquired absence of other specified parts of digestive tract
CPT/HCPCS: 36415; 36600; 70450; 71045; 71046; 71250; 73080; 74018; 74176; 80048; 80053; 80162; 80202; 81003; 82803; 83605; 85014; 85018; 85025; 85027; 86850; 86900; 86901; 86920; 87040; 87070; 87075; 87086; 87205; 87493; 92526 GN; 92610 GN; 93005; 94640; 94640 76; 94760; 94799; 99202; 99281; 99285; A6260; J1940; J2060; J2405; J2543; J2765; J2920; J3010; J3370; J7030; J7050; J7512; P9016; P9035; Q0169

== ENCOUNTER 2018-05-18 13:57 | Day surgery (SDC) | payer OTHER ==
[~2018-05-18] VITALS: Ht 177.8 cm; Wt 136.1 kg
[~2018-05-18 13:57] MED LIST changes: +AMLODIPINE BESYL5 MG PO; +CIPROFLOXACIN500 M1 PO; +DOXYCYCLINE HY100 M3 PO; +DOXYCYCLINE MO100 MG PO; +GABAPENTIN600 MG PO; +MORPHABOND ER15 MG PO; +NORVASC5 MG PO; +XANAX0.25 MG PO
[2018-05-18 14:46] VITALS: BP 134/77
[2018-05-18 18:45] VITALS: BP 135/75
[2018-05-18 19:26] VITALS: BP 133/64
== END 2018-05-18 19:40 | disposition home or self-care (01) ==
LOC: SDC 13:57
PROC: 0JH60WZ Insertion of Totally Implantable Vascular Access Device into Chest Subcutaneous Tissue and Fascia, Open Approach (ICD-10-PCS; principal; 2018-05-18)
DX: Z45.2 Encounter for adjustment and management of vascular access device (principal); D46.9 Myelodysplastic syndrome, unspecified; I87.8 Other specified disorders of veins; J44.9 Chronic obstructive pulmonary disease, unspecified; I10 Essential (primary) hypertension; E11.9 Type 2 diabetes mellitus without complications; E21.3 Hyperparathyroidism, unspecified; M06.9 Rheumatoid arthritis, unspecified; M10.00 Idiopathic gout, unspecified site; I83.899 Varicose veins of unspecified lower extremity with other complications; I45.10 Unspecified right bundle-branch block; Z86.72 Personal history of thrombophlebitis; Z79.01 Long term (current) use of anticoagulants; Z79.899 Other long term (current) drug therapy; Z85.828 Personal history of other malignant neoplasm of skin; Z86.73 Personal history of transient ischemic attack (TIA), and cerebral infarction without residual deficits
CPT/HCPCS: 71045; 87641; C1751; C1769; J2250; J3010

== ENCOUNTER 2018-05-23 10:32 | Inpatient (IN) | payer OTHER ==
[~2018-05-23] VITALS: Ht 182.9 cm; Wt 142.5 kg
[2018-05-23] VITALS (18 sets, daily range): BP systolic 85–120; BP diastolic 41–59
[2018-05-23 11:47] LABS: INTER. NORMALIZED RATIO 1.5
[2018-05-23 11:50] LABS: ALBUMIN 2.9 g/dL (3.2-4.8); CHLORIDE 101 mEq/L (99-109); PTT 32.3 SEC (25-37); SODIUM 135 mEq/L (136-147)
[2018-05-23 11:53] LABS: GLUCOSE 159 mg/dL (70-99); TOTAL PROTEIN 6.5 g/dL (6.4-8.3)
[2018-05-23 11:55] LABS: TOTAL BILIRUBIN 1.5 mg/dL (0.0-1.0)
[2018-05-23 11:56] LABS: ALKALINE PHOSPHATASE 58 IU/L (3-129); CREATININE 1.5 mg/dL (0.6-1.3); GFR ESTIMATE (CALCULATED) 50 mL/min/ (58.99-99999)
[2018-05-23 11:57] LABS: UREA NITROGEN (BUN) 22 mg/dL (9-23)
[2018-05-23 11:58] LABS: AST (GOT) 9 IU/L (2-34)
[2018-05-23 11:59] LABS: ALT (GPT) 5 IU/L (3-49)
[2018-05-23 12:02] LABS: TROP-I INTERPRETATION NEGATIVE; TROPONIN-I < 0.01 ng/mL (0.0-0.30)
[2018-05-23 12:07] LABS: MCHC 34.4 G/DL (30.0-36.0); MCV 72.6 FL (86-99); NRBC (%) 2.6 /100 WBC (0-0); RBC DIS.WIDTH-CV 29.3 % (11.8-14.6)
[2018-05-23 12:09] LABS: HEMOGLOBIN 6.2 G/DL (12.5-16.6); RED BLOOD COUNT 2.48 M/uL (4.00-5.50); WHITE BLOOD COUNT 1.2 K/uL (4.1-10.2)
[2018-05-23 13:18] LABS: IMM.PLATELET FRACTION 18.5 (1-7)
[2018-05-23 13:20] LABS: PLATELET COUNT 10 K/uL (156-360)
[2018-05-23 13:36] LABS: ABS NEUTROPHIL COUNT 0.5; ANISOCYTOSIS 3+; BAND NEUTROPHILS 17.2 % (0-8.0); EOSINOPHIL ABS CT 0.1; EOSINOPHILS 4.3 % (0-5.0); HELMET CELLS 1+; HYPOCHROMASIA 2+; LYMPHOCYTES 36.2 % (15.0-45.0); MACROCYTES 1+; METAMYELOCYTES 5.2 %; MICROCYTOSIS 1+; MYELOCYTES 0.9 %; NUCLEATED RBC'S 1.7; OTHER 7.8; PLAT.SUFFICIENCY VERY DECREASED; POIKILOCYTOSIS 3+; POLYCHROMASIA 1+; SCHISTOCYTES 2+; SEG.NEUTROPHILS 22.4 % (46.0-76.0); TARGET CELLS 1+; TEAR DROP CELLS 1+
[2018-05-23 13:51] LABS: APPEARANCE SL.HAZY ((CLEAR)); BILIRUBIN NEGATIVE; BLOOD NEGATIVE; COLOR AMBER ((YELLOW)); GLUCOSE (STRIP) NEGATIVE; KETONES NEGATIVE; LEUKOCYTES NEGATIVE; NITRITE NEGATIVE; PROTEIN (STRIP) 30; SPECIFIC GRAVITY 1.018 (1.000-1.030); UROBILINOGEN 0.2 MG/DL (0.2-1.0)
[2018-05-23] MEDS ORDERED: PAIN RELIEF PO (14:15)
[2018-05-23 14:30] LABS: BACTERIA NONE SEEN /HPF; CALCIUM OXALATE CRYSTALS 1+ /HPF; EPITHELIAL CELLS RARE /HPF; MUCUS TRACE /LPF; RED BLOOD CELLS 0-5 /HPF (0-5); UCUL ADDED? NO; WHITE BLOOD CELLS 0-5 /HPF (0-5)
[2018-05-24] VITALS (7 sets, daily range): BP systolic 84–114; BP diastolic 39–96
[2018-05-24 05:43] LABS: HEMATOCRIT 21.5 % (38.0-50.0); HEMOGLOBIN 7.2 G/DL (12.5-16.6); MCH 25.3 PG (29.0-34.0); MCHC 33.5 G/DL (30.0-36.0); MCV 75.4 FL (86-99); RBC DIS.WIDTH-CV 27.3 % (11.8-14.6); RBC DIS.WIDTH-SD 71.9 % (39-53); RED BLOOD COUNT 2.85 M/uL (4.00-5.50)
[2018-05-24 05:48] LABS: PLATELET COUNT 18 K/uL (156-360)
[2018-05-24 05:56] LABS: CHLORIDE 103 MEQ/L (99-109); CREATININE 1.4 MG/DL (0.6-1.3); GFR ESTIMATE (CALCULATED) 54 mL/min/ (58.99-99999); POTASSIUM 3.5 MEQ/L (3.7-5.4); SODIUM 137 MEQ/L (136-147); UREA NITROGEN (BUN) 26 mg/dL (9-23)
[2018-05-24 06:21] LABS: GLUCOSE 111 mg/dL (70-99)
[2018-05-24 07:16] LABS: PLAT.SUFFICIENCY VERY DECREASED
[2018-05-24 10:25] LABS: APPEARANCE SL.HAZY ((CLEAR)); BILIRUBIN NEGATIVE; BLOOD SMALL; COLOR AMBER ((YELLOW)); GLUCOSE (STRIP) NEGATIVE; KETONES NEGATIVE; LEUKOCYTES NEGATIVE; NITRITE NEGATIVE; PROTEIN (STRIP) 30; SPECIFIC GRAVITY 1.019 (1.000-1.030); UROBILINOGEN 0.2 MG/DL (0.2-1.0)
[2018-05-24 10:30] LABS: BACTERIA NONE SEEN /HPF; EPITHELIAL CELLS RARE /HPF; MUCUS TRACE /LPF; UCUL ADDED? YES
[2018-05-25] VITALS (13 sets, daily range): BP systolic 88–142; BP diastolic 48–59
[2018-05-25 06:00] LABS: ALBUMIN 2.4 G/DL (3.2-4.8); ALKALINE PHOSPHATASE 64 IU/L (3-129); ALT (GPT) 6 IU/L (3-49); AST (GOT) 11 IU/L (2-34); CHLORIDE 105 MEQ/L (99-109); CREATININE 1.3 MG/DL (0.6-1.3); GFR ESTIMATE (CALCULATED) 59 mL/min/ (58.99-99999); GLUCOSE 96 mg/dL (70-99); POTASSIUM 3.6 MEQ/L (3.7-5.4); SODIUM 140 MEQ/L (136-147); TOTAL BILIRUBIN 1.4 MG/DL (0.0-1.0); TOTAL PROTEIN 5.4 G/DL (6.4-8.3); UREA NITROGEN (BUN) 24 mg/dL (9-23)
[2018-05-25 06:24] LABS: HEMATOCRIT 20.5 % (38.0-50.0); MCH 24.8 PG (29.0-34.0); MCHC 33.2 G/DL (30.0-36.0); MCV 74.8 FL (86-99); NRBC (%) 1.7 /100 WBC (0-0); RBC DIS.WIDTH-CV 28.1 % (11.8-14.6); RBC DIS.WIDTH-SD 74.5 % (39-53); RED BLOOD COUNT 2.74 M/uL (4.00-5.50)
[2018-05-25 06:42] LABS: HEMOGLOBIN 6.8 G/DL (12.5-16.6); WHITE BLOOD COUNT 1.2 K/uL (4.1-10.2)
[2018-05-25 07:40] LABS: ABS NEUTROPHIL COUNT 0.4; ANISOCYTOSIS 1+; BAND NEUTROPHILS 7.9 % (0-8.0); BASOPHILS 0.9 %; BURR CELLS 2+; EOSINOPHIL ABS CT 0.4; EOSINOPHILS 32.5 % (0-5.0); IMM.PLATELET FRACTION 13.3 (1-7); LYMPHOCYTES 28.1 % (15.0-45.0); MACROCYTES 1+; METAMYELOCYTES 4.4 %; MICROCYTOSIS 1+; MONOCYTES 1.7 % (0-9.0); MYELOCYTES 0.9 %; NUCLEATED RBC'S 1.8; OTHER 1.7; OVALOCYTES 2+; PLAT.SUFFICIENCY VERY DECREASED; PLATELET COUNT 14 K/uL (156-360); POIKILOCYTOSIS 3+; POLYCHROMASIA 1+; SCHISTOCYTES 2+; SEG.NEUTROPHILS 21.9 % (46.0-76.0)
[2018-05-25 09:18] LABS: MAGNESIUM 1.3 mg/dl (1.3-2.7)
[2018-05-26 03:19] VITALS: BP 121/58
[2018-05-26 07:06] LABS: HEMOGLOBIN 7.5 G/DL (12.5-16.6); MCH 25.6 PG (29.0-34.0); MCHC 34.1 G/DL (30.0-36.0); MCV 75.1 FL (86-99); NRBC (%) 1.4 /100 WBC (0-0); RBC DIS.WIDTH-CV 26.9 % (11.8-14.6); RBC DIS.WIDTH-SD 71.9 % (39-53); RED BLOOD COUNT 2.93 M/uL (4.00-5.50)
[2018-05-26 07:07] LABS: WHITE BLOOD COUNT 1.4 K/uL (4.1-10.2)
[2018-05-26 07:18] LABS: ALBUMIN 2.5 G/DL (3.2-4.8); ALKALINE PHOSPHATASE 71 IU/L (3-129); ALT (GPT) 8 IU/L (3-49); AST (GOT) 12 IU/L (2-34); CHLORIDE 106 MEQ/L (99-109); GFR ESTIMATE (CALCULATED) > 59 mL/min/ (58.99-99999); GLUCOSE 99 mg/dL (70-99); POTASSIUM 3.8 MEQ/L (3.7-5.4); SODIUM 141 MEQ/L (136-147); TOTAL BILIRUBIN 1.5 MG/DL (0.0-1.0); TOTAL PROTEIN 5.6 G/DL (6.4-8.3); UREA NITROGEN (BUN) 20 mg/dL (9-23)
[2018-05-26 07:51] LABS: ABS NEUTROPHIL COUNT 0.6; ACANTHOCYTES 1+; ANISOCYTOSIS 1+; BAND NEUTROPHILS 18.9 % (0-8.0); BASOPHILS 3.6 %; BURR CELLS 1+; EOSINOPHIL ABS CT 0.4; EOSINOPHILS 29.8 % (0-5.0); HEMATOLOGY COMMENT 1 SN; HYPOCHROMASIA 2+; MACROCYTES 1+; MICROCYTOSIS 1+; MONOCYTES 4.5 % (0-9.0); NUCLEATED RBC'S 3.6; PLAT.SUFFICIENCY DECREASED; PLATELET COUNT 33 K/uL (156-360); POIKILOCYTOSIS 3+; POLYCHROMASIA 2+; SEG.NEUTROPHILS 25.2 % (46.0-76.0); SPHEROCYTES 1+; TARGET CELLS 1+
[2018-05-26 08:15] VITALS: BP 104/56
[2018-05-26 11:01] VITALS: BP 112/60
[2018-05-26 15:51] VITALS: BP 110/56
[2018-05-26 19:10] VITALS: BP 117/57
[2018-05-27] VITALS (7 sets, daily range): BP systolic 102–136; BP diastolic 53–70
[2018-05-27 05:51] LABS: HEMATOCRIT 21.2 % (38.0-50.0); HEMOGLOBIN 7.1 G/DL (12.5-16.6); MCH 25.3 PG (29.0-34.0); MCHC 33.5 G/DL (30.0-36.0); MCV 75.4 FL (86-99); NRBC (%) 1.3 /100 WBC (0-0); RBC DIS.WIDTH-SD 73.8 % (39-53); RED BLOOD COUNT 2.81 M/uL (4.00-5.50)
[2018-05-27 05:59] LABS: WHITE BLOOD COUNT 1.5 K/uL (4.1-10.2)
[2018-05-27 06:10] LABS: ALBUMIN 2.5 G/DL (3.2-4.8); ALKALINE PHOSPHATASE 100 IU/L (3-129); ALT (GPT) 7 IU/L (3-49); AST (GOT) 10 IU/L (2-34); CHLORIDE 106 MEQ/L (99-109); CREATININE 0.9 MG/DL (0.6-1.3); GFR ESTIMATE (CALCULATED) > 59 mL/min/ (58.99-99999); GLUCOSE 85 mg/dL (70-99); POTASSIUM 3.4 MEQ/L (3.7-5.4); SODIUM 141 MEQ/L (136-147); UREA NITROGEN (BUN) 16 mg/dL (9-23)
[2018-05-27 07:04] LABS: ABS NEUTROPHIL COUNT 0.4; ACANTHOCYTES 1+; ANISOCYTOSIS 2+; BASOPHILS 5.3 %; EOSINOPHIL ABS CT 0.4; EOSINOPHILS 25.4 % (0-5.0); HEMATOLOGY COMMENT 1 OTHERS=IMMATURE MONONUCLEAR CELLS; HYPOCHROMASIA 1+; LYMPHOCYTES 33.3 % (15.0-45.0); METAMYELOCYTES 1.8 %; MICROCYTOSIS 1+; MONOCYTES 3.5 % (0-9.0); NUCLEATED RBC'S 1.8; OTHER 1.8; OVALOCYTES 1+; PLAT.SUFFICIENCY VERY DECREASED; PLATELET COUNT 40 K/uL (156-360); SCHISTOCYTES 1+; SEG.NEUTROPHILS 21.9 % (46.0-76.0); TARGET CELLS 1+
[2018-05-27 11:28] LABS: MAGNESIUM 1.7 mg/dl (1.3-2.7)
[2018-05-28 03:30] VITALS: BP 135/64
[2018-05-28 06:07] LABS: HEMATOCRIT 23.2 % (38.0-50.0); HEMOGLOBIN 7.6 G/DL (12.5-16.6); MCHC 32.8 G/DL (30.0-36.0); MCV 76.3 FL (86-99); RBC DIS.WIDTH-CV 27.5 % (11.8-14.6); RBC DIS.WIDTH-SD 76.1 % (39-53); RED BLOOD COUNT 3.04 M/uL (4.00-5.50)
[2018-05-28 06:08] LABS: ALBUMIN 2.6 G/DL (3.2-4.8); ALKALINE PHOSPHATASE 114 IU/L (3-129); ALT (GPT) 7 IU/L (3-49); AST (GOT) 9 IU/L (2-34); CHLORIDE 104 MEQ/L (99-109); CREATININE 0.9 MG/DL (0.6-1.3); GFR ESTIMATE (CALCULATED) > 59 mL/min/ (58.99-99999); GLUCOSE 84 mg/dL (70-99); POTASSIUM 3.5 MEQ/L (3.7-5.4); SODIUM 141 MEQ/L (136-147); TOTAL BILIRUBIN 1.1 MG/DL (0.0-1.0); TOTAL PROTEIN 6.3 G/DL (6.4-8.3); UREA NITROGEN (BUN) 13 mg/dL (9-23)
[2018-05-28 06:34] LABS: WHITE BLOOD COUNT 1.6 K/uL (4.1-10.2)
[2018-05-28 07:03] LABS: ABS NEUTROPHIL COUNT 0.4; ANISOCYTOSIS 1+; BAND NEUTROPHILS 6.1 % (0-8.0); BASOPHILS 4.4 %; BURR CELLS 1+; EOSINOPHIL ABS CT 0.4; EOSINOPHILS 26.3 % (0-5.0); IMM.PLATELET FRACTION 24.6 (1-7); LYMPHOCYTES 43.9 % (15.0-45.0); MACROCYTES 1+; MICROCYTOSIS 1+; MONOCYTES 1.7 % (0-9.0); NUCLEATED RBC'S 0.9; OTHER 0.9; OVALOCYTES 1+; PLAT.SUFFICIENCY VERY DECREASED; PLATELET COUNT 31 K/uL (156-360); POIKILOCYTOSIS 2+; POLYCHROMASIA 2+; SCHISTOCYTES 1+; SEG.NEUTROPHILS 16.7 % (46.0-76.0); SMUDGE CELLS 4.4; TARGET CELLS 1+; TEAR DROP CELLS 1+
[2018-05-28 07:17] VITALS: BP 146/72
[2018-05-28 11:01] VITALS: BP 134/70
[2018-05-28 14:50] VITALS: BP 140/71
[2018-05-28 21:00] VITALS: BP 137/69
[2018-05-29] VITALS: BP 133/69
[2018-05-29 04:18] VITALS: BP 136/86
[2018-05-29 06:07] LABS: CHLORIDE 103 MEQ/L (99-109); CREATININE 0.8 MG/DL (0.6-1.3); GFR ESTIMATE (CALCULATED) > 59 mL/min/ (58.99-99999); GLUCOSE 91 mg/dL (70-99); SODIUM 138 MEQ/L (136-147); UREA NITROGEN (BUN) 12 mg/dL (9-23)
[2018-05-29 07:01] VITALS: BP 130/64
[2018-05-29 07:47] LABS: ABS NEUTROPHIL COUNT 0.2; ANISOCYTOSIS 1+; BAND NEUTROPHILS 0.9 % (0-8.0); BASOPHILS 0.8 %; BURR CELLS 2+; EOSINOPHIL ABS CT 0.3; EOSINOPHILS 22.4 % (0-5.0); HEMATOCRIT 23.9 % (38.0-50.0); HEMOGLOBIN 7.8 G/DL (12.5-16.6); IMM.PLATELET FRACTION 20.2 (1-7); LYMPHOCYTES 63.8 % (15.0-45.0); MCH 25.2 PG (29.0-34.0); MCHC 32.6 G/DL (30.0-36.0); MCV 77.1 FL (86-99); MICROCYTOSIS 1+; MONOCYTES 0.9 % (0-9.0); NUCLEATED RBC'S 0.9; OVALOCYTES 2+; PLAT.SUFFICIENCY VERY DECREASED; PLATELET COUNT 33 K/uL (156-360); POIKILOCYTOSIS 2+; POLYCHROMASIA 3+; RBC DIS.WIDTH-CV 27.5 % (11.8-14.6); SCHISTOCYTES 2+; SEG.NEUTROPHILS 11.2 % (46.0-76.0); SMUDGE CELLS 1.7; TEAR DROP CELLS 2+
[2018-05-29 08:11] LABS: WHITE BLOOD COUNT 1.5 K/uL (4.1-10.2)
[2018-05-29 11:35] VITALS: BP 135/62
[2018-05-29 15:26] VITALS: BP 126/61
[2018-05-29 21:00] VITALS: BP 137/75
[2018-05-30 00:58] VITALS: BP 138/69
[2018-05-30 05:42] LABS: HEMATOCRIT 24.6 % (38.0-50.0); MCH 25.2 PG (29.0-34.0); MCHC 32.5 G/DL (30.0-36.0); MCV 77.4 FL (86-99); RBC DIS.WIDTH-SD 74.9 % (39-53); RED BLOOD COUNT 3.18 M/uL (4.00-5.50)
[2018-05-30 05:50] LABS: WHITE BLOOD COUNT 1.5 K/uL (4.1-10.2)
[2018-05-30 05:54] LABS: CHLORIDE 102 MEQ/L (99-109); CREATININE 0.7 MG/DL (0.6-1.3); GFR ESTIMATE (CALCULATED) > 59 mL/min/ (58.99-99999); GLUCOSE 89 mg/dL (70-99); POTASSIUM 4.2 MEQ/L (3.7-5.4); SODIUM 141 MEQ/L (136-147); UREA NITROGEN (BUN) 12 mg/dL (9-23)
[2018-05-30 06:20] VITALS: BP 136/69
[2018-05-30 07:07] LABS: ABS NEUTROPHIL COUNT 0.2; ANISOCYTOSIS 2+; ATYPICAL LYMPHOCYTE 5.3 %; BAND NEUTROPHILS 1.7 % (0-8.0); BASOPHILS 3.5 %; BURR CELLS 1+; EOSINOPHIL ABS CT 0.1; HEMATOLOGY COMMENT 1 SN; HYPOCHROMASIA 2+; IMM.PLATELET FRACTION 18.9 (1-7); LYMPHOCYTES 67.6 % (15.0-45.0); METAMYELOCYTES 1.7 %; MICROCYTOSIS 1+; MONOCYTES 0.9 % (0-9.0); OVALOCYTES 2+; PLAT.SUFFICIENCY VERY DECREASED; PLATELET COUNT 42 K/uL (156-360); POIKILOCYTOSIS 2+; POLYCHROMASIA 3+; SCHISTOCYTES 2+; SEG.NEUTROPHILS 10.5 % (46.0-76.0); TEAR DROP CELLS 1+
[2018-05-30 07:11] LABS: EOSINOPHILS 8.8 % (0-5.0)
[2018-05-30 07:45] VITALS: BP 143/70
[2018-05-30 11:34] VITALS: BP 131/65
== END 2018-05-30 15:16 | disposition home or self-care (01) | DRG 314 ==
LOC: EME 10:32 → 4EAST 13:53 → EDOF 13:53 → ENRESERV 13:55 → EDOF 15:44 → ENRESERV 15:46 → 4EAST 17:43
PROVIDERS: Emergency Medicine; Hospitalist; Student in an Organized Health Care Education/Training Program
PROC: 0JPT0WZ Removal of Totally Implantable Vascular Access Device from Trunk Subcutaneous Tissue and Fascia, Open Approach (ICD-10-PCS; principal; 2018-05-23)
PROC: 30233N1 Transfusion of Nonautologous Red Blood Cells into Peripheral Vein, Percutaneous Approach (ICD-10-PCS; principal; 2018-05-23)
DX: T80.212A Local infection due to central venous catheter, initial encounter (principal); A41.9 Sepsis, unspecified organism; N17.9 Acute kidney failure, unspecified; M70.22 Olecranon bursitis, left elbow; I13.0 Hypertensive heart and chronic kidney disease with heart failure and stage 1 through stage 4 chronic kidney disease, or unspecified chronic kidney disease; D70.9 Neutropenia, unspecified; N18.3 Chronic kidney disease, stage 3 (moderate); R61 Generalized hyperhidrosis; Z79.01 Long term (current) use of anticoagulants; I50.9 Heart failure, unspecified; K21.9 Gastro-esophageal reflux disease without esophagitis; Z96.653 Presence of artificial knee joint, bilateral; J18.9 Pneumonia, unspecified organism; J44.0 Chronic obstructive pulmonary disease with (acute) lower respiratory infection; I48.2 Chronic atrial fibrillation; M10.9 Gout, unspecified; M70.21 Olecranon bursitis, right elbow; L40.50 Arthropathic psoriasis, unspecified; L03.313 Cellulitis of chest wall; E66.01 Morbid (severe) obesity due to excess calories; R50.81 Fever presenting with conditions classified elsewhere; F41.9 Anxiety disorder, unspecified; D61.818 Other pancytopenia; F32.9 Major depressive disorder, single episode, unspecified; D64.9 Anemia, unspecified; Y84.8 Other medical procedures as the cause of abnormal reaction of the patient, or of later complication, without mention of misadventure at the time of the procedure; I27.20 Pulmonary hypertension, unspecified; D46.Z Other myelodysplastic syndromes; G47.33 Obstructive sleep apnea (adult) (pediatric); M06.9 Rheumatoid arthritis, unspecified; E78.00 Pure hypercholesterolemia, unspecified; Z85.828 Personal history of other malignant neoplasm of skin; R56.9 Unspecified convulsions; M79.7 Fibromyalgia; M70.32 Other bursitis of elbow, left elbow; Z86.73 Personal history of transient ischemic attack (TIA), and cerebral infarction without residual deficits; Z68.41 Body mass index [BMI] 40.0-44.9, adult; Z86.718 Personal history of other venous thrombosis and embolism; Z90.49 Acquired absence of other specified parts of digestive tract; Z99.81 Dependence on supplemental oxygen
CPT/HCPCS: 71045; 71046; 71250; 80048; 80053; 80162; 80202; 81003; 82948; 83605; 83735; 83880; 84484; 85025; 85027; 85610; 85730; 86850; 86900; 86901; 86920; 87040; 87070; 87075; 87086; 87205; 87641; 93005; 94640; 94799; 99281; 99285; A6214; J1940; J2405; J2543; J3370; J3475; J7030; J7040; J7050; J7120; P9016; P9035; P9040

== ENCOUNTER 2018-06-24 13:16 | Day surgery (SDC) | payer OTHER ==
[~2018-06-24] VITALS: Ht 188 cm; Wt 133.8 kg
[~2018-06-24 13:16] MED LIST changes: +PAIN RELIEF PO
[2018-06-24 13:51] LABS: INTER. NORMALIZED RATIO 1.2
[2018-06-24 14:00] VITALS: BP 116/66
[2018-06-24 20:12] VITALS: BP 124/60
[2018-06-24 20:30] VITALS: BP 127/60
== END 2018-06-24 20:40 | disposition home or self-care (01) ==
LOC: SDC 13:16
PROVIDERS: Surgery
DX: Z45.2 Encounter for adjustment and management of vascular access device (principal); C94.6 Myelodysplastic disease, not elsewhere classified; I87.8 Other specified disorders of veins; M06.9 Rheumatoid arthritis, unspecified; G47.33 Obstructive sleep apnea (adult) (pediatric); I25.10 Atherosclerotic heart disease of native coronary artery without angina pectoris; I10 Essential (primary) hypertension; E11.9 Type 2 diabetes mellitus without complications; E21.3 Hyperparathyroidism, unspecified; J44.9 Chronic obstructive pulmonary disease, unspecified; D64.9 Anemia, unspecified; I44.0 Atrioventricular block, first degree; Z90.5 Acquired absence of kidney; Z86.73 Personal history of transient ischemic attack (TIA), and cerebral infarction without residual deficits
CPT/HCPCS: 71045; 85610; 86850; 86900; 86901; 87641; C1751; C1769; J0690; J2250; P9035